=== PATIENT | female | born 1995 | race Caucasian/White ===

== ENCOUNTER 2022-01-23 03:34 | Emergency (ER) | payer SELFPAY ==
[2022-01-23] VITALS (31 sets, daily range): BP systolic 106–144; BP diastolic 73–98; PULSE 93–130; RESP 15–31; TEMP 36.1; O2SAT 93–100
--- NOTE | ~2022-01-23 | CT_ITS ---
EXAMINATION: CTA chest PE protocol DATE: 01/23/2022 05:23 INDICATION: Shortness of breath. Chest tightness. TECHNIQUE: Computed tomography angiography (CTA) of the chest was performed with 100 mL Omnipaque-350 intravenous contrast timed to evaluate the pulmonary arteries. Coronal maximum intensity projection 3D-reconstructions were created by the technologist. Automated exposure control and iterative reconst ruction technique were employed. The dose-length product was 218.17 mGy-cm. COMPARISON: None. FINDINGS: The lungs demonstrate mild groundglass opacities in dependent right upper lobe. There is mi ld atelectasis in right middle lobe. There are a few scattered nodules in the lungs measuring up to 5 mm in left lower lobe. There is mucous plugging in right lower lobe. No pleural effusion. The heart size is normal. No pericardial effusion. There is no pulmonary embolus. There is a chronic mild compr ession fracture of T7. IMPRESSION: 1. No pulmonary embolus. Sensitivity is mildly decreased by motion artifact. 2. Small lung nodules and mild right upper lobe groundglass opacities, likely mild infection. Reviewed, dictated and finalized at location A. IMPRESSION: 1. No pulmonary embolus. Sensitivity is mildly decreased by motion artifact. 2. Small lung nodules and mild right upper lobe groundglass opacities, likely m ild infection.
--- NOTE | ~2022-01-23 | XR_ITS ---
EXAMINATION: XR chest 2V DATE: 01/23/2022 04:15 INDICATION: Dyspnea. TECHNIQUE: Frontal and lateral views of the chest were obtained. COMPARISON: Chest CT 01/23/2022 FINDINGS: The chest demonstrates clear lungs without pneumonia, pleural effusion, or pneumothorax. Th e heart size is normal. There is a mild chronic compression fracture of T7. IMPRESSION: 1. No acute cardiopulmonary disease. Reviewed, dictated and finalized at location A.
--- NOTE | 2022-01-23 03:49 | ED.SOB ---
HPI - SOB/Dyspnea General Chief Complaint: Shortness of Breath/Dyspnea Stated Complaint: short of breath Time Seen by Provider: 01/23/22 03:39 History of Present Illness HPI Narrative: This is a 26-year-old female who denies past medical history, presenting to the emergency department complaining shortness of breath. She states for the past week she has had cough, chest tightness, shortness of breath and fevers without measured temperatures at home. 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 She states she is vaccinated for the coronavirus. Her symptoms are accompanied by decreased appetite and frequent loose stools. Related Data Allergies Allergy/AdvReac Type Severity Reaction Status Date / Time No Known Allergies Allergy Mild Verified 12/25/12 14:59 Review of Systems Review of Systems: CONSTITUTIONAL: Fevers denies fever, chills, or sweats. EYES: Denies visual changes, redness, or discharge. ENT: Denies rhinorrhea, congestion, sore throat, or otalgia. CARDIOVASCULAR: Denies chest pain, palpitations, or edema. RESPIRATORY: Cough and dyspnea cough or dyspnea. GASTROINTESTINAL: Diarrhea, Denies abdominal pain, nausea, vomiting, or diarrhea. GENITOURINARY: Denies dysuria or hematuria. SKIN: Denies rash or itching. MUSCULOSKELETAL: Denies back pain, joint pain, or myalgia. NEUROLOGIC: Denies headache, numbness, dizziness, or weakness. PSYCHIATRIC: Denies anxiety or depression. Exam Narrative: GENERAL: Well-developed, well-nourished, in mild distress due to dyspnea HEAD: Normocephalic, atraumatic. EYES: PERRLA and EOMI. ENT: Nares clear, no rhinorrhea or epistaxis. Mucous membranes moist. Oropharynx without tonsillar hypertrophy exudate or other lesions. NECK: Supple. No adenopathy or masses. No carotid bruits or JVD CHEST: Expiratory wheeze noted in the bilateral lower lung sanchez, right greater than left. Good aeration noted. No rales or rhonchi HEART: Tachycardic with regular rhythm. No murmur heard. Normal peripheral pulses. ABDOMEN: Soft, nontender, nondistended, normal active bowel sounds. EXTREMITIES: Normal range of motion. No edema. SKIN: Warm, dry, no rash. NEURO: No focal deficits. Alert and oriented x3. PSYCH: Normal mood and affect. Course Course Emergency Course: 03:54 - Resting heart rate in the 130s. Wells score 4.5. Will scan for PE. 04:19 - Reassessed patient. She states he feels improved after albuterol and labs. Expiratory wheeze has improved. 04:50 - CBC shows hemoglobin of 15.6 otherwise unremarkable. Chemistries unremarkable. test negative. Chest x-ray not concerning for pneumonia. CT PE and COVID/flu swabs pending. Reassessed patient she continues to improve with heart rate now decreased to the 100s. 06:59 - CT PE negative. COVID and flu swabs negative. Patient states she feels much better, tolerated p.o. and wishes to be discharged. I discussed return emergency precautions including signs and symptoms concerning for respiratory distress and ACS. The patient voiced understanding is comfortable with the plan. All questions answered to her satisfaction. Vital Signs Vital signs: Vital Signs Temperature 97 F L 01/23/22 03:38 Pulse Rate 111 H 01/23/22 03:38 Respiratory Rate 28 H 01/23/22 03:38 Blood Pressure 121/73 01/23/22 03:38 Pulse Oximetry 100 01/23/22 03:38 Oxygen Delivery Room Air 01/23/22 03:38 Temperature 97 F L 01/23/22 03:38 Pulse Rate 118 H 01/23/22 07:34 Respiratory Rate 30 H 01/23/22 07:25 Blood Pressure 137/84 01/23/22 07:25 Pulse Oximetry 95 01/23/22 07:25 Oxygen Delivery Room Air 01/23/22 03:58 MDM - SOB/Dyspnea MDM Narrative Medical decision making narrative: Plan: Labs, IV fluids, imaging, albuterol nebs, flu and COVID swab, test, reassess Differential Diagnosis Differential diagnosis: Likely community acquired pneumonia, pulmonary embolism and other (COVID, influenza, metabolic abnormality, preg
[2022-01-23] MEDS: ALBUTEROL SULFATE NEB 2.5 MG/3 ML INH 5 MG INHALATION ×2 (03:55→06:26)
[2022-01-23 04:31] LABS: Basophils Absolute Auto 0.1 K/mm3 (0.0-0.1); Basophils Percent Auto 1.4 % (0.2-1.2); Eosinophils Absolute Auto 0.6 K/mm3 (0-0.3); Hematocrit 46.8 % (37.0-47.0); Hemoglobin 15.6 g/dL (12.0-15.0); Immature Granulocyte Absolute 0.02 K/mm3 (0.00-0.031); Immature Granulocyte Percent A 0.3 % (0-0.5); Lymphocytes Absolute Auto 1.45 K/mm3 (0.9-3.2); Lymphocytes Percent Auto 22.6 % (18.3-44.2); Mean Corpuscular HGB Conc 33.3 g/dl (32-36); Mean Corpuscular Hemoglobin 27.2 pg (26-34); Mean Corpuscular Volume 81.5 fl (80-100); Mean Platelet Volume 11.4 fl (7.4-10.4); Monocytes Absolute Auto 0.7 K/mm3 (0.1-0.6); Monocytes Percent Auto 10.9 % (2.6-8.5); Neutrophils Absolute Auto 3.6 K/mm3 (1.3-6.7); Neutrophils Percent Auto 55.8 % (45.5-73.1); Platelet Count Result 271 k/mm3 (150-375); Red Blood Count 5.74 M/mm3 (4.2-5.4); Red Cell Distribution Width 12.6 % (11.5-14.5); White Blood Count 6.4 K/mm3 (4.5-10.0)
[2022-01-23] MEDS: SODIUM CHLORIDE 0.9% IV 1,000 ML 999 ML IV CONT (04:31)
[2022-01-23 04:47] LABS: Alanine Aminotransferase 25 U/L (6-35); Albumin Level 4.9 g/dL (3.5-5.1); Alkaline Phosphatase 70 U/L (38-126); Anion Gap 13 mmol/L (8-16); Aspartate Amino Transferase 30 U/L (14-36); Bilirubin,Total 0.7 mg/dL (0.2-1.3); Blood Urea Nitrogen 11 mg/dL (7-17); Calcium 9.7 mg/dL (8.4-10.2); Carbon Dioxide 23 mmol/L (22-30); Chloride 103 mmol/L (98-107); Estimated CRCL calculation 134 ml/min; Estimated Glomerular Filt Rate > 60; Glucose 103 mg/dL (65-110); Potassium 4.1 mmol/L (3.4-5.0); Sodium 139 mmol/L (137-145)
[2022-01-23 05:03] LABS: Influenza A QL RT-PCR Negative (Negative); Influenza B QL RT-PCR Negative (Negative); SARS-CoV-2 RNA PCR Negative
== END 2022-01-23 07:35 | disposition home or self-care (01) ==
PROVIDERS: Emergency Provider Preventive Medicine Aerospace Medicine
DX: J20.8 Acute bronchitis due to other specified organisms (principal); R00.0 Tachycardia, unspecified; R06.2 Wheezing; Z20.822 Contact with and (suspected) exposure to COVID-19
CPT/HCPCS: 36415; 71046; 71275; 80053; 81025; 85025; 87502; 94640; 96360; 96361; 99284; C9803; J7030; Q9967; U0003; U0005

== ENCOUNTER 2023-03-01 05:35 | Inpatient (IN) | payer MEDICAID, SELFPAY ==
[2023-03-01] VITALS (46 sets, daily range): BP systolic 132–156; BP diastolic 68–91; PULSE 90–141; RESP 13–36; TEMP 36.3–37.5; O2SAT 91–100; BMI 33.7
--- NOTE | ~2023-03-01 | CT_ITS ---
EXAMINATION: CTA chest DATE: 03/05/2023 08:27 INDICATION: Hypoxia. TECHNIQUE: Computed tomographic angiography (CTA) of the chest was performed with 100 mL Omnipaque-35 0 intravenous contrast. Automated exposure control and iterative reconstruction technique were employ ed. The dose-length product was 338.26 mGy-cm. Maximum intensity projection 3D-reconstructions of the aorta and other arteries were constructed by the technologist on a separate workstation. COMPARISON: Chest CT 01/23/2022 FINDINGS: The lungs demonstrate mild atelectasis. No pleural effusion. The heart size is normal. No p ericardial effusion. Thoracic aorta is normal. There is no pulmonary embolus. There is a chronic comp ression fracture of T7 vertebral body. IMPRESSION: 1. Mild bilateral atelectasis. 2. Normal thoracic aorta. 3. No pulmonary embolus. Reviewed, dictated and finalized at location E. ICAL UNIT OPERATOR
--- NOTE | ~2023-03-01 | XR_ITS ---
Portable chest x-ray Comparison: 01/23/2022 Clinical History: Dyspnea Findings: Lungs are clear, without focal consolidation or pleural effusion. Cardiomediastinal silho uette is stable. Bones and soft tissues are unremarkable. Impression: Normal chest. Reviewed, dictated and finalized at location . TITUTE CROSSING GUARD Impression: Normal chest.
--- NOTE | 2023-03-01 05:52 | ED.GENADULT ---
HPI - General Adult General Chief complaint: Shortness of Breath/Dyspnea <Paul Rubio MD - Last Filed: 03/01/23 06:52> Stated complaint: short of breath <Paul Rubio MD - Last Filed: 03/01/23 06:52> Time Seen by Provider: 03/01/23 05:50 <Paul Rubio MD - Last Filed: 03/01/23 06:52> History of Present Illness HPI narrative: This is a 27-year-old female with a history of asthma presenting with difficulty breathing. Patient says her symptoms started 4 hours prior to arrival. She has taken inhaler without relief. She denies fever chills chest pain or lower extremity edema. She is in the ER for asthma about 1 time per year. She has never been intubated but has used BiPAP the past. Patient smokes marijuana. <Paul Rubio MD - Last Filed: 03/01/23 06:52> This is a 27-year-old female with a history of asthma presenting with difficulty breathing. Patient says her symptoms started 4 hours prior to arrival. She has taken inhaler without relief. She denies fever chills chest pain or lower extremity edema. She is in the ER for asthma about 1 time per year. She has never been intubated but has used BiPAP the past. Patient smokes marijuana. <Javad Martinez MD - Last Filed: 03/06/23 20:36> Related Data Home medications: Home Medications Medication Instructions Recorded Confirmed diphenhydramine HCl 50 mg capsule 50 mg PO HS PRN sleep 03/01/23 03/01/23 <Paul Rubio MD - Last Filed: 03/01/23 06:52> Allergies/adverse reactions: Allergies Allergy/AdvReac Type Severity Reaction Status Date / Time No Known Allergies Allergy Mild Verified 03/01/23 05:42 <Paul Rubio MD - Last Filed: 03/01/23 06:52> [facility] Past Medical History Medical History: Medical History Asthma <Paul Rubio MD - Last Filed: 03/01/23 06:52> Family History Family History: Family History (Updated 03/01/23 @ 15:18 by Joann Ruiz, YAYA) Grandparent Acute myocardial infarction Asthma Chronic obstructive pulmonary disease Cerebrovascular accident Diabetes mellitus Hypertension Father Diabetes mellitus Hypertension <Paul Rubio MD - Last Filed: 03/01/23 06:52> Social History Social History: Social History Smoking status: Never smoker Second hand tobacco smoke exposure: No Alcohol intake: current Drinks per week: 2 Substance use: current Substance use type: marijuana Last use: 02/28/23 Lack of Transportation: No Lack of Food: Often True Current Housing: I Do Not Have Housing Concerned About Future Housing: No Difficulty Paying Gas/Electric Bills: YES Difficulty Paying for Meds: YES Currently Unemployed: YES Education: High School Diploma/GED Difficulty w/ Childcare or Family Care: No Spiritual care concerns: No <Paul Rubio MD - Last Filed: 03/01/23 06:52> Exam Narrative: APPEARANCE: No apparent distress. Head: atraumatic. EYES: EOMI, NOSE: Atraumatic NECK: Trachea midline RESPIRATORY: 2-3 word dyspnea, wheezing in all sanchez CARDIOVASCULAR: RRR, ABDOMINAL: Non-distended MUSCULOSKELETAl: No obvious deformities NEURO: Alert. Moving 4/4 extremities SKIN:: Warm, dry. Normal color PSYCHIATRIC: Normal affect <Paul Rubio MD - Last Filed: 03/01/23 06:52> Course Course Emergency Course: BRAD: 7:20 AM Reevaluated patient, feeling quite a bit better. Continues to wheeze on exam with some mild increased work of breathing, additional nebulizer treatment ordered. 9:35 AM Patient seen ambulating around the department without difficulty, in no respiratory distress. Continues to be tachycardic, IVF infusing. 10:35 AM Patient continues to be tachycardic in the 130s despite multiple fluid boluses and improved respirations. Will do lab work and discuss hospitalization. 11:58
[2023-03-01] MEDS: IPRATROPIUM BR 0.02% INH SOLN 0.5 MG/2.5 ML VIAL 1 MG INHALATION (06:00)
[2023-03-01] MEDS: ALBUTEROL SULFATE NEB 2.5 MG/3 ML INH 10 MG INHALATION (06:00)
[2023-03-01] MEDS: MAGNESIUM SULF 2 GM/WATER 50ML 2 GM/50 ML BAG IVPB (06:01)
[2023-03-01] MEDS: SODIUM CHLORIDE 0.9% IV 1,000 ML 999 ML IV CONT ×3 (06:01→09:49)
[2023-03-01] MEDS: ALBUTEROL SULFATE NEB 2.5 MG/3 ML INH INHALATION ×2 (07:36→14:09)
[2023-03-01] MEDS: IPRATROPIUM BR 0.02% INH SOLN 0.5 MG/2.5 ML VIAL INHALATION ×3 (07:36→20:38)
--- NOTE | 2023-03-01 10:35 | ECG_ITS ---
Measurements Intervals Burns Rate: 131 P: 63 MS: 132 QRS: 27 QRSD: 86 T: 13 QT: 353 QTc: 522 Interpretive Statements SINUS TACHYCARDIA INCOMPLETE RIGHT BUNDLE BRANCH BLOCK DELAYED PRECORDIAL R/S TRANSITION NONSPECIFIC ST & T-WAVE ABNORMALITY- ANTEROLAT/INF LEADS BASELINE ARTIFACT- I, III, AVR, AVL, AVF ABNORMAL ECG NO PREVIOUS ECG AVAILABLE FOR COMPARISON Electronically Signed On 03-01-2023 10:47:02 REGIONAL PROJECT MANAGER by Luis Alberto London D.O.
[2023-03-01 11:13] LABS: Basophils Percent Auto 0.2 % (0.2-1.2); Eosinophils Percent Auto 0.1 % (0-4.4); Hematocrit 42.1 % (37.0-47.0); Hemoglobin 13.3 g/dL (12.0-15.0); Immature Granulocyte Absolute 0.04 K/mm3 (0.00-0.031); Immature Granulocyte Percent A 0.4 % (0-0.5); Lymphocytes Absolute Auto 0.25 K/mm3 (0.9-3.2); Lymphocytes Percent Auto 2.3 % (18.3-44.2); Mean Corpuscular HGB Conc 31.6 g/dl (32-36); Mean Corpuscular Hemoglobin 26.3 pg (26-34); Mean Corpuscular Volume 83.2 fl (80-100); Mean Platelet Volume 10.9 fl (7.4-10.4); Monocytes Absolute Auto 0.1 K/mm3 (0.1-0.6); Monocytes Percent Auto 1.1 % (2.6-8.5); Neutrophils Absolute Auto 10.5 K/mm3 (1.3-6.7); Neutrophils Percent Auto 95.9 % (45.5-73.1); Platelet Count Result 269 k/mm3 (150-375); Red Blood Count 5.06 M/mm3 (4.2-5.4); Red Cell Distribution Width 13.2 % (11.5-14.5); White Blood Count 10.9 K/mm3 (4.5-10.0)
[2023-03-01 11:35] LABS: Alanine Aminotransferase 34 U/L (6-35); Albumin Level 4.5 g/dL (3.5-5.1); Alkaline Phosphatase 63 U/L (38-126); Anion Gap 17 mmol/L (8-16); Aspartate Amino Transferase 27 U/L (14-36); Bilirubin,Total 0.5 mg/dL (0.2-1.3); Blood Urea Nitrogen 6 mg/dL (7-17); Calcium 8.3 mg/dL (8.4-10.2); Carbon Dioxide 16 mmol/L (22-30); Chloride 109 mmol/L (98-107); Estimated CRCL calculation 137 ml/min; Estimated Glomerular Filt Rate > 60; Glucose 161 mg/dL (65-110); Potassium 3.5 mmol/L (3.4-5.0); Sodium 142 mmol/L (137-145)
[2023-03-01 11:36] LABS: NT Pro B Type Natriuretic Pept 81 pg/mL (19.9-100); Troponin I < 0.012 ng/mL (0.000-0.034)
[2023-03-01 11:39] LABS: D Dimer < 0.27 ug/mL (<0.48)
[2023-03-01 11:51] LABS: Influenza A QL RT-PCR Negative (Negative); Influenza B QL RT-PCR Negative (Negative); RSV RNA, RT-PCR Negative (Negative); SARS-CoV-2 RNA PCR Negative (Negative)
[2023-03-01] MEDS: METOPROLOL TARTRATE INJ 5 MG/5 ML VIAL 2.5 MG IV PUSH (12:41)
[2023-03-01 13:29] LABS: Lactic Acid Reflex 3.5 mmol/L (0.7-2.0)
--- NOTE | 2023-03-01 15:04 | PM.IMHP ---
H&P: HPI History of Present Illness Date/Time: 03/01/23 15:04 Chief Complaint: shortness of breath Narrative: 27F accompanied by a male probably significant other w/ PMH reactive airway disease and marijuana use daily w/o a PCP or inhalers presents with SOB. she has an asthma attack about once a year, and last time she had tachycardia. she has 4 cats at home she is allergic to, mold at the house as well. in the ER she was successfully treated with steroid magnesium and nebs. she breathes normal now but tachycardia persists which was improved with IV metoprolol. she has lactic acidosis as well and a slightly elevated white count. she denies any complaints currently except that she is dehydrated as she has not been eating. Review of Systems Review of Systems: All systems reviewed & are unremarkable except as noted in HPI and below PMFSH Past Medical History Medical History Asthma Meds Home Medications and Allergies Home Medications Medication Instructions Recorded Confirmed Type acetaminophen 500 mg capsule 1,000 mg PO Q6H PRN fever or pain 01/23/22 Rx #60 caps albuterol sulfate 90 mcg/actuation 2 inh inhalation Q4-6H PRN 01/23/22 Rx breath activated powder inhaler shortness of breath or wheezing #1 ea albuterol sulfate 90 mcg/actuation 2 puff inhalation QID #8.5 grams 03/01/23 Rx aerosol inhaler prednisone 20 mg tablet 40 mg PO DAILY 5 days #10 tabs 03/01/23 Rx Allergies Allergy/AdvReac Type Severity Reaction Status Date / Time No Known Allergies Allergy Mild Verified 03/01/23 05:42 Vital Signs Vital Signs - 24 hr 03/01/23 05:37 03/01/23 05:44 03/01/23 05:44 Temperature 99.5 F Pulse Rate 102 H 103 H Respiratory Rate 22 H Blood Pressure 156/88 H Pulse Oximetry 97 97 Oxygen Delivery Room Air Room Air Fraction of Inspired Oxygen 03/01/23 05:44 03/01/23 05:46 03/01/23 06:02 Temperature Pulse Rate 97 90 Respiratory Rate 17 19 Blood Pressure 134/82 Pulse Oximetry 96 97 Oxygen Delivery Room Air Fraction of Inspired Oxygen 03/01/23 06:56 03/01/23 07:04 03/01/23 07:36 Temperature Pulse Rate 122 H 128 H 132 H Respiratory Rate 17 18 18 Blood Pressure 138/74 Pulse Oximetry 100 Oxygen Delivery Fraction of Inspired Oxygen 03/01/23 07:50 03/01/23 07:15 03/01/23 08:43 Temperature Pulse Rate 125 H 136 H Respiratory Rate 18 18 Blood Pressure 138/75 Pulse Oximetry 100 95 Oxygen Delivery Room Air Fraction of Inspired Oxygen 03/01/23 07:38 03/01/23 07:45 03/01/23 08:00 Temperature Pulse Rate 101 H 132 H Respiratory Rate 13 30 H Blood Pressure Pulse Oximetry 92 100 Oxygen Delivery Fraction of Inspired Oxygen 03/01/23 08:07 03/01/23 08:15 03/01/23 08:30 Temperature Pulse Rate 136 H 141 H 138 H Respiratory Rate 23 H 23 H 27 H Blood Pressure 149/81 H Pulse Oximetry Oxygen Delivery Fraction of Inspired Oxygen 03/01/23 08:32 03/01/23 08:45 03/01/23 09:00 Temperature Pulse Rate 133 H 136 H 136 H Respiratory Rate 22 H 28 H 32 H Blood Pressure 150/91 H Pulse Oximetry 95 93 Oxygen Delivery Fraction of Inspired Oxygen 03/01/23 09:23 03/01/23 09:30 03/01/23 09:32 Temperature Pulse Rate 134 H 139 H 136 H Respiratory Rate 20 26 H 36 H Blood Pressure 144/74 H Pulse Oximetry 97 96 95 Oxygen Delivery Fraction of Inspired Oxygen 03/01/23 09:45 03/01/23 10:00 03/01/23 10:02 Temperature Pulse Rate 135 H 128 H 129 H Respiratory Rate 18 21 H 19 Blood Pressure 146/72 H Pulse Oximetry 96 96 95 Oxygen Delivery Fraction of Inspired Oxygen 03/01/23 10:15 03/01/23 10:30 03/01/23 10:32 Temperature Pulse Rate 131 H 129 H 133 H Respiratory Rate 22 H 28 H 22 H Blood Pressure 148/79 H Pulse Oximetry 94 96 98 Oxygen Delivery Fraction of Inspired Oxygen 03/01/23 10:45 03/01
--- NOTE | 2023-03-01 15:10 | ADMGEN ---
This patient, Wilma Thakkar, was admitted to IMU Room 232-01. Patient/family oriented to hospital policies and general routines including ID bracelet, bed and alarms, visiting hours, pain management, procedures, bathroom and other care routines, personal items, smoking policy, room service/diet, and visiting hours. Information on how to activate the Rapid Response Team has been discussed. Patient/Family are encouraged to report perceived risks to care and to ask questions if they do not understand what they are told or what they should do.
[2023-03-01 16:17] LABS: Reflex Lactic Acid Yes or No Add Lactic
[2023-03-01] MEDS: SODIUM CHLORIDE 0.9% IV 1,000 ML 100 ML IV CONT (16:53)
[2023-03-01] MEDS: methylPREDNISolone SOD SUCC 125 MG VIAL 60 MG IV PUSH (18:59)
[2023-03-01] MEDS: LEVALBUTEROL NEB 1.25 MG/3 ML INHALATION (20:38)
[2023-03-01 22:12] LABS: Lactic Acid Reflex 1.7 mmol/L (0.7-2.0)
[2023-03-01 22:14] LABS: Anion Gap 16 mmol/L (8-16); Blood Urea Nitrogen 7 mg/dL (7-17); Calcium 9.3 mg/dL (8.4-10.2); Carbon Dioxide 17 mmol/L (22-30); Chloride 105 mmol/L (98-107); Estimated CRCL calculation 175 ml/min; Estimated Glomerular Filt Rate > 60; Glucose 133 mg/dL (65-110); Potassium 3.5 mmol/L (3.4-5.0); Sodium 138 mmol/L (137-145)
[2023-03-02] VITALS (27 sets, daily range): BP systolic 123–147; BP diastolic 58–102; PULSE 90–142; RESP 16–24; TEMP 36.3–37.1; O2SAT 88–100
--- NOTE | 2023-03-02 | ECHO_ITS ---
Patient Info Name: Wilma Thakkar Age: 27 years : 1995 Gender: Female Ht: 62 in Wt: 194 lbs BSA: 2.00 m2 HR: 113 bpm BP: 136 / 102 mmHg Heart Rhythm: Sinus Rhythm Technical Quality: Fair Exam Date: 03/02/2023 11:27 AM Exam Location: Echo Lab Exam Room: 232 Patient Status: Inpatient Admit Date: 03/02/2023 Staff Ordering Physician: Melodie Benz MD Sales Representative Jewelry: Evelyn Clemente RDCS Attending Provider: Melodie Benz MD Exam Type: CA echo doppler color flow Study Info Indications - tachycardia sob Complete two-dimensional, color flow and Doppler transthoracic echocardiogram is performed. Summary 1. Complete two-dimensional, color flow and Doppler transthoracic echocardiogram is performed. 2. Hyperdynamic left ventricular systolic contractility suggesting a state of increased eye no trophic stimulation. 3. Otherwise unremarkable echocardiogram. Left Ventricle Left ventricular chamber dimension is normal. Left ventricular systolic function is hyperdynamic, estimated at >70%. The left ventricular diastolic function is normal. Right Ventricle Right ventricular chamber dimension is normal. Left Atria Left atrial chamber dimension is normal. Right Atria Right atrial chamber dimension is normal. Aortic Valve The aortic valve is normal. Pulmonic Valve The pulmonic valve is normal. Mitral Valve The mitral valve has normal leaflets. Tricuspid Valve The tricuspid valve leaflets are normal. Pericardium/Pleural The pericardium appears normal. Aorta The aortic root size at the sinus of Valsalva is normal. Left Ventricular Outflow Tract Name Value Normal LVOT 2D LVOT Diameter 2.0 cm LVOT Doppler LVOT Peak Gradient 6 mmHg LVOT Mean Gradient 4 mmHg LVOT VTI 21 cm LVOT VTI/AV VTI Ratio 0.9 LVOT Stroke Volume 65 ml Pulmonic Valve Name Value Normal PV Doppler PV Peak Gradient 5 mmHg Mitral Valve Name Value Normal MV Doppler MV Decel [place] 641 cm/s2 MV PHT 46 ms MV Area (PHT) 4.8 cm2 4.0-5.0 MV Diastolic Function MV E Peak Velocity 101 cm/s MV A Peak Velocity 95 cm/s MV E/A 1.1 MV Decel Time 158 ms Tricuspid Valve Name Value Nor
[2023-03-02] MEDS: methylPREDNISolone SOD SUCC 125 MG VIAL 60 MG IV PUSH ×4 (00:11→17:36)
[2023-03-02] MEDS: IPRATROPIUM BR 0.02% INH SOLN 0.5 MG/2.5 ML VIAL INHALATION ×4 (02:43→20:57)
[2023-03-02] MEDS: LEVALBUTEROL NEB 1.25 MG/3 ML INHALATION ×4 (02:43→20:57)
[2023-03-02] MEDS: SODIUM CHLORIDE 0.9% IV 1,000 ML 100 ML IV CONT (03:00)
[2023-03-02 05:39] LABS: Basophils Percent Auto 0.1 % (0.2-1.2); Hematocrit 41.2 % (37.0-47.0); Immature Granulocyte Absolute 0.06 K/mm3 (0.00-0.031); Immature Granulocyte Percent A 0.4 % (0-0.5); Lymphocytes Absolute Auto 0.71 K/mm3 (0.9-3.2); Mean Corpuscular HGB Conc 31.6 g/dl (32-36); Mean Corpuscular Hemoglobin 26.6 pg (26-34); Mean Corpuscular Volume 84.3 fl (80-100); Mean Platelet Volume 11.1 fl (7.4-10.4); Monocytes Absolute Auto 0.3 K/mm3 (0.1-0.6); Monocytes Percent Auto 1.8 % (2.6-8.5); Neutrophils Absolute Auto 13.3 K/mm3 (1.3-6.7); Neutrophils Percent Auto 92.7 % (45.5-73.1); Platelet Count Result 253 k/mm3 (150-375); Red Blood Count 4.89 M/mm3 (4.2-5.4); Red Cell Distribution Width 13.3 % (11.5-14.5); White Blood Count 14.3 K/mm3 (4.5-10.0)
[2023-03-02 05:47] LABS: Potassium 3.9 mmol/L (3.4-5.0)
[2023-03-02 05:49] LABS: Anion Gap 12 mmol/L (8-16); Blood Urea Nitrogen 7 mg/dL (7-17); Calcium 8.8 mg/dL (8.4-10.2); Carbon Dioxide 19 mmol/L (22-30); Chloride 107 mmol/L (98-107); Estimated CRCL calculation 175 ml/min; Estimated Glomerular Filt Rate > 60; Glucose 168 mg/dL (65-110); Magnesium 2.1 mg/dL (1.6-2.3); Sodium 138 mmol/L (137-145)
[2023-03-02 06:21] LABS: Procalcitonin 0.1 ng/mL
--- NOTE | 2023-03-02 08:24 | PCWOUND ---
WOCN NOTE Received referral for wound care. spoke to day RN no wound present.
--- NOTE | 2023-03-02 09:56 | PM.IMPN ---
Progress Note: A&P Assessment and Plan (1) Tachycardia: Code(s): R00.0 - Tachycardia, unspecified Status: Acute (2) Asthma: Qualifiers: Asthma complication type: with acute exacerbation Asthma persistence: unspecified Asthma severity: unspecified severity Qualified Code(s): J45.901 - Unspecified asthma with (acute) exacerbation Code(s): J45.909 - Unspecified asthma, uncomplicated Status: Acute (3) Dehydration: Code(s): E86.0 - Dehydration Status: Acute Plan 27F w/ PMH reactive airway disease presents shortness of breath and asthma exacerbation 1) asthma exacerbation/acute hypoxic respiratory failure - o2 taken off, ARF resolved - 03/02 still tight, PEF 300 --> 350 - cont solumedrol and duonebs - leukocytosis, trend. trend procal. likely 2/2 steroids, no signs of systemic toxicity 2) tachycardia - per history, this is chronic, but never evaluated. she has had adequate fluid resuscitation without improvement. tachycardia certainly could be augmented by albuterol, however it is unusually high in 140's. switched to levalbuterol. cont tele and consult cardiology. metoprolol IV 5mg x1 did help the HR come down slightly. - will also check ABG and blood cultures. d dimer negative. trop negative. - EKG inferolateral T wave abnormalities. obtaining 2d echo 3) marijuana abuse - counseled FEN: saline lock IV, regular diet GI prophylaxis: not indicated DVT prophylaxis: lovenox Lines: pIV Code Status: Full Code Dispo: stable. More than 35 minutes spent on chart review, patient interaction and assessment and plan. Subjective Date/time seen: 03/02/23 09:56 Interval history: NAOE. pt denies shortness of breath, she does however complain of palpitation. she has not had this worked up, but the boyfriend present says its been there for a long time. Review of Systems Review of Systems: All systems reviewed & are unremarkable except as noted in HPI and below Exam Const: General: comfortable and no acute distress Eyes: Pupils: Equal, round and reactive pupils present Neck: Neck: supple Resp: Other: decreased air intake, expiratory wheeze Cardio: Rate: tachycardic Rhythm: regular rhythm Heart sounds: no gallops, no murmurs and no rubs GI: GI Palp: Yes Soft to palpation and No Tenderness to palpation present (GI) Extrem: General: no edema Objective Data Vital Signs Vital Signs: Vital Signs - 24 hr 03/01/23 10:00 03/01/23 10:02 03/01/23 10:15 Temperature Pulse Rate 128 H 129 H 131 H Respiratory Rate 21 H 19 22 H Blood Pressure 146/72 H Pulse Oximetry 96 95 94 Oxygen Delivery Oxygen Flow Rate Fraction of Inspired Oxygen 03/01/23 10:30 03/01/23 10:32 03/01/23 10:45 Temperature Pulse Rate 129 H 133 H 131 H Respiratory Rate 28 H 22 H 23 H Blood Pressure 148/79 H Pulse Oximetry 96 98 99 Oxygen Delivery Oxygen Flow Rate Fraction of Inspired Oxygen 03/01/23 11:11 03/01/23 11:22 03/01/23 11:37 Temperature Pulse Rate 133 H 126 H 129 H Respiratory Rate 29 H 25 H 22 H Blood Pressure Pulse Oximetry 93 95 91 Oxygen Delivery Oxygen Flow Rate Fraction of Inspired Oxygen 03/01/23 11:45 03/01/23 12:41 03/01/23 12:53 Temperature Pulse Rate 126 H 124 H Respiratory Rate 29 H Blood Pressure Pulse Oximetry 93 92 Oxygen Delivery Room Air Oxygen Flow Rate Fraction of Inspired Oxygen 03/01/23 14:09 03/01/23 14:09 03/01/23 14:19 Temperature Pulse Rate 98 105 H Respiratory Rate 18 20 Blood Pressure Pulse Oximetry 93 100 Oxygen Delivery Room Air Oxygen Flow Rate Fraction of Inspired Oxygen 21 03/01/23 14:30 03/01/23 16:00 03/01/23 16:00 Temperature 97.4 F L 98.1 F Pulse Rate 127 H 118 H Respiratory Rate 16 18 Blood Pressure 132/68 140/77 Pulse Oximetry 94 93 Oxygen Delivery Room Air Oxygen Flow Rate Fraction of Inspired Oxygen 03/01
[2023-03-02] MEDS: METOPROLOL TARTRATE INJ 5 MG/5 ML VIAL IV PUSH ×2 (10:58→16:28)
[2023-03-02 14:49] LABS: Alveolar/Arterial O2 Gradient 56.4 mmHg; Base Excess ABG 0.4 mEq/l (+/-2.0); Fractional Inspired Oxygen 21 %; HCO3 ABG 23.3 mEq/l (22.0-26.0); Oxygen Content ABG 18.2 %vol (16.0-22.0); Oxygen Saturation ABG 90.3 % (95.0-100.0); Oxyhemoglobin 88.9 % THb (90.0-100.0); PCO2 ABG 32.8 mmHg (35.0-45.0); PO2 ABG 54.1 mmHg (80.0-100.0); PO2 FiO2 Ratio Arterial Blood 2.58 %; Total Hemoglobin 14.6 g/dL (12.0-18.0); pH ABG 7.469 (7.350-7.450)
[2023-03-02 14:50] LABS: Device ROOM AIR; Site Drawn RIGHT BRACHIAL
[2023-03-02 16:50] LABS: Glucose Point of Care 134 mg/dl (65-105)
--- NOTE | 2023-03-02 18:17 | PM.CNCAR ---
Assessment and Plan Assessment and plan (1) Tachycardia: Code(s): R00.0 - Tachycardia, unspecified Status: Acute Plan This is a otherwise healthy 27-year-old woman who has a diagnosis of asthma presenting with an asthmatic attack/exacerbation. In this setting following treatment emergency room she was found to be rather tachycardic heart rates as rapid as 140. Her cardiac rhythm however is not abnormal she has sinus rhythm/sinus tachycardia and this is strictly speaking not an arrhythmia. She has no structural heart disease on echo no evidence of anemia or fever. I would conclude that her tachycardia is a physiologic response to the asthmatic attack and the medications used to treat it. At this point I would discontinue the orders for p.r.n. metoprolol. It is certainly possible this young patient could have inappropriate sinus tachycardia but I would not give her that diagnosis at the time she is hospitalized with an asthmatic attack. We will follow her with you during the hospital stay at this point there are no specific cardiac recommendations to make. Jose Ibarra MD [facility] History of Present Illness History of Present Illness Consult date/time: 03/02/23 18:17 Reason For Visit: asthma exacerbation,tachycardia Narrative: This is a 27-year-old woman I am seeing at the request of the hospitalist because of sinus tachycardia. She has no cardiovascular history or problems and does not have any apparent cardiac symptoms. She does have a history of asthma which was diagnosed as such in her early 20s. She says that earlier in her life she thought she was having problems with occasional episodes of seasonal allergies but in retrospect she believes it was asthmatic problems. She states she has a poor living situation and is not able to have any regular medical care she was having significant difficulty breathing for a couple of days with wheezing her boyfriend finally took her to the emergency room and where she was evaluated and admitted. A she was apparently treated with steroids and nebulizers and her breathing improved fairly promptly. She was found to be very tachycardic on EKG and was placed on telemetry while she is in the hospital she has sinus rhythm/sinus tachycardia with heart rate varying between 90 and 140. Once again she has no cardiac complaints. She is not anemic or febrile. She had an echocardiogram done this afternoon which demonstrates a structurally normal heart with no abnormalities. Her 12 lead electrocardiogram other than sinus tachycardia is a normal tracing. Review of Systems Constitutional: Constitutional: Reports no additional constitutional complaints Eyes: Eyes: Reports no additional eye complaints ENT: Reports system reviewed and no additional complaints, except as documented Cardiovascular: Cardiovascular: Reports no additional cardiovascular complaints Respiratory: Respiratory: Reports dyspnea and Reports wheezing Gastrointestinal: Gastrointestinal: Reports no additional gastrointestinal complaints Musculoskeletal: Musculoskeletal: Reports no additional musculoskeletal complaints Integumentary/Breasts: Skin/Breast: Reports system reviewed and no additional complaints, except as docu Neurologic: Reports system reviewed and no additional complaints, except as documented Endocrine: Endocrine: Reports no additional endocrine complaints Hematologic/Lymphatic: Hematologic/Lymphatic: Reports no additional hematologic/lymphatic complaints Allergic/Immunologic: Allergic/Immunologic: Reports no additional allergic/immunologic complaints PMFSH Past Medical History Medical History Asthma Family History Family History (Updated 03/01/23 @ 15:18 by Joann Ruiz RN) Grandparent Acute myocardial infarction Asthma Chronic obstructive pulmonary disease Cerebrovascular accident Diabetes mellitus Hypertension Father Diabete
[2023-03-02 20:26] LABS: Glucose Point of Care 126 mg/dl (65-105)
[2023-03-03] VITALS (27 sets, daily range): BP systolic 120–144; BP diastolic 64–81; PULSE 85–123; RESP 18–20; TEMP 36.3–37.1; O2SAT 88–94
[2023-03-03] MEDS: methylPREDNISolone SOD SUCC 125 MG VIAL 60 MG IV PUSH ×4 (01:01→18:28)
[2023-03-03] MEDS: LEVALBUTEROL NEB 1.25 MG/3 ML INHALATION ×4 (02:29→20:40)
[2023-03-03] MEDS: IPRATROPIUM BR 0.02% INH SOLN 0.5 MG/2.5 ML VIAL INHALATION ×4 (02:30→20:40)
[2023-03-03 05:16] LABS: Basophils Percent Auto 0.2 % (0.2-1.2); Hematocrit 43.3 % (37.0-47.0); Immature Granulocyte Absolute 0.14 K/mm3 (0.00-0.031); Immature Granulocyte Percent A 0.7 % (0-0.5); Lymphocytes Absolute Auto 0.83 K/mm3 (0.9-3.2); Lymphocytes Percent Auto 4.2 % (18.3-44.2); Mean Corpuscular HGB Conc 32.3 g/dl (32-36); Mean Corpuscular Hemoglobin 26.7 pg (26-34); Mean Corpuscular Volume 82.5 fl (80-100); Monocytes Absolute Auto 0.8 K/mm3 (0.1-0.6); Monocytes Percent Auto 4.1 % (2.6-8.5); Neutrophils Absolute Auto 18.1 K/mm3 (1.3-6.7); Neutrophils Percent Auto 90.8 % (45.5-73.1); Platelet Count Result 308 k/mm3 (150-375); Red Blood Count 5.25 M/mm3 (4.2-5.4); Red Cell Distribution Width 13.4 % (11.5-14.5); White Blood Count 19.9 K/mm3 (4.5-10.0)
[2023-03-03 05:25] LABS: Anion Gap 11 mmol/L (8-16); Blood Urea Nitrogen 14 mg/dL (7-17); Calcium 9.4 mg/dL (8.4-10.2); Carbon Dioxide 22 mmol/L (22-30); Chloride 106 mmol/L (98-107); Estimated CRCL calculation 142 ml/min; Estimated Glomerular Filt Rate > 60; Glucose 137 mg/dL (65-110); Magnesium 2.3 mg/dL (1.6-2.3); Potassium 4.2 mmol/L (3.4-5.0); Sodium 139 mmol/L (137-145)
[2023-03-03 05:43] LABS: Procalcitonin 0.1 ng/mL
[2023-03-03] MEDS: ENOXAPARIN 40 MG/0.4 ML SYRINGE SUB-Q (08:20)
--- NOTE | 2023-03-03 10:14 | PM.IMPN ---
Progress Note: A&P Assessment and Plan (1) Dehydration: Code(s): E86.0 - Dehydration Status: Acute (2) Asthma: Qualifiers: Asthma complication type: with acute exacerbation Asthma persistence: unspecified Asthma severity: unspecified severity Qualified Code(s): J45.901 - Unspecified asthma with (acute) exacerbation Code(s): J45.909 - Unspecified asthma, uncomplicated Status: Acute (3) Tachycardia: Code(s): R00.0 - Tachycardia, unspecified Status: Acute Plan 27F w/ PMH reactive airway disease presents shortness of breath and asthma exacerbation 1) asthma exacerbation/acute hypoxic respiratory failure - o2 taken off, ARF resolved - 03/02 still tight, PEF 300 --> 350 - 03/03 PEF 270 - cont solumedrol and duonebs. on 03/03 adding azithromycin given her slow response, will help with inflammation -?leukocytosis,?uptrenidng. cont to trend. procal wnl although. likely 2/2 steroids, no signs of systemic toxicity. blood cultures taken 2) sinus tachycardia - per history, this is chronic, but never evaluated. she has had adequate fluid resuscitation without improvement. tachycardia certainly could be augmented by albuterol, however it is unusually high in 140's. switched to levalbuterol. cont tele and consult cardiology. metoprolol IV 5mg x1 did help the HR come down slightly. - will also check ABG and blood cultures. d dimer negative. trop negative. - EKG inferolateral T wave abnormalities. obtaining 2d echo - 03/03 2D echo w/o structural abnormalities. cardiology recommends d/c metoprolol and treat asthma. 3) marijuana abuse - counseled FEN: saline lock IV, regular diet GI prophylaxis: not indicated DVT prophylaxis: lovenox Lines: pIV Code Status: Full Code Dispo: stable. More than 25 minutes spent on chart review, patient interaction and assessment and plan. Subjective Date/time seen: 03/03/23 10:14 Interval history: NAOE. pt denies feeling palpitations today, but does have intermittent shortness of breath and dry cough. she denies fever Review of Systems Review of Systems: All systems reviewed & are unremarkable except as noted in HPI and below Exam Const: General: comfortable and no acute distress Eyes: Pupils: Equal, round and reactive pupils present Resp: Effort & Inspection: normal respiratory effort Auscultation: no crackles, wheezes and diminished lung sounds Other: peak expiratory flow 270 Cardio: Rate: tachycardic Rhythm: regular rhythm Heart sounds: no gallops, no murmurs and no rubs GI: GI Palp: Yes Soft to palpation and No Tenderness to palpation present (GI) Extrem: General: no edema Objective Data Vital Signs Vital Signs: Vital Signs - 24 hr 03/02/23 10:58 03/02/23 12:00 03/02/23 12:00 Temperature 97.4 F L Pulse Rate 133 H 120 H 117 H Respiratory Rate 24 H Blood Pressure 137/75 Pulse Oximetry 98 Oxygen Delivery Oxygen Flow Rate Fraction of Inspired Oxygen 03/02/23 14:00 03/02/23 12:00 03/02/23 14:44 Temperature Pulse Rate 113 H 101 H Respiratory Rate 24 H Blood Pressure Pulse Oximetry 91 Oxygen Delivery Nasal Cannula Oxygen Flow Rate 1 Fraction of Inspired Oxygen 03/02/23 14:45 03/02/23 14:57 03/02/23 16:00 Temperature 98.7 F Pulse Rate 109 H 90 Respiratory Rate 20 20 Blood Pressure 128/75 Pulse Oximetry 92 98 Oxygen Delivery Room Air Oxygen Flow Rate Fraction of Inspired Oxygen 03/02/23 16:28 03/02/23 16:00 03/02/23 16:00 Temperature Pulse Rate 133 H 131 H Respiratory Rate Blood Pressure Pulse Oximetry 93 Oxygen Delivery Nasal Cannula Oxygen Flow Rate 1 Fraction of Inspired Oxygen 03/02/23 18:00 03/02/23 20:25 03/02/23 20:59 Temperature 97.6 F Pulse Rate 118 H 111 H 102 H Respiratory Rate 18 20 Blood Pressure 147/83 H Pulse Oximetry 94 Oxygen Delivery Oxygen Flow Rate Fraction of Inspired Oxygen 1
[2023-03-03] MEDS: AZITHROMYCIN 500 MG/NS 250 ML 500 MG/250 ML BAG 250 MG IVPB (11:04)
[2023-03-04] VITALS (27 sets, daily range): BP systolic 131–138; BP diastolic 74–83; PULSE 76–122; RESP 14–107; TEMP 36.4–36.8; O2SAT 90–98
[2023-03-04] MEDS: methylPREDNISolone SOD SUCC 125 MG VIAL 60 MG IV PUSH ×5 (00:04→23:23)
[2023-03-04] MEDS: LEVALBUTEROL NEB 1.25 MG/3 ML INHALATION ×4 (02:44→20:43)
[2023-03-04] MEDS: IPRATROPIUM BR 0.02% INH SOLN 0.5 MG/2.5 ML VIAL INHALATION ×4 (02:46→20:43)
[2023-03-04 05:47] LABS: Basophils Percent Auto 0.1 % (0.2-1.2); Hematocrit 43.4 % (37.0-47.0); Hemoglobin 13.8 g/dL (12.0-15.0); Immature Granulocyte Absolute 0.19 K/mm3 (0.00-0.031); Immature Granulocyte Percent A 1.3 % (0-0.5); Lymphocytes Absolute Auto 0.95 K/mm3 (0.9-3.2); Lymphocytes Percent Auto 6.3 % (18.3-44.2); Mean Corpuscular HGB Conc 31.8 g/dl (32-36); Mean Corpuscular Hemoglobin 26.8 pg (26-34); Mean Corpuscular Volume 84.4 fl (80-100); Mean Platelet Volume 11.1 fl (7.4-10.4); Monocytes Absolute Auto 0.7 K/mm3 (0.1-0.6); Monocytes Percent Auto 4.4 % (2.6-8.5); Neutrophils Absolute Auto 13.3 K/mm3 (1.3-6.7); Neutrophils Percent Auto 87.9 % (45.5-73.1); Platelet Count Result 295 k/mm3 (150-375); Red Blood Count 5.14 M/mm3 (4.2-5.4); Red Cell Distribution Width 13.1 % (11.5-14.5); White Blood Count 15.1 K/mm3 (4.5-10.0)
[2023-03-04 06:02] LABS: Anion Gap 10 mmol/L (8-16); Blood Urea Nitrogen 14 mg/dL (7-17); Calcium 8.8 mg/dL (8.4-10.2); Carbon Dioxide 25 mmol/L (22-30); Chloride 102 mmol/L (98-107); Estimated CRCL calculation 121 ml/min; Estimated Glomerular Filt Rate > 60; Glucose 133 mg/dL (65-110); Potassium 4.1 mmol/L (3.4-5.0); Sodium 137 mmol/L (137-145)
[2023-03-04] MEDS: ENOXAPARIN 40 MG/0.4 ML SYRINGE SUB-Q (09:13)
[2023-03-04] MEDS: AZITHROMYCIN 500 MG/NS 250 ML 500 MG/250 ML BAG 250 MG IVPB (09:13)
--- NOTE | 2023-03-04 09:24 | PM.IMPN ---
Progress Note: A&P Assessment and Plan (1) Acute hypoxemic respiratory failure: Code(s): J96.01 - Acute respiratory failure with hypoxia Status: Acute Plan 27F w/ PMH reactive airway disease presents shortness of breath and asthma exacerbation 1) asthma exacerbation/acute hypoxic respiratory failure - back on o2, still needs more time - 03/02 still tight, PEF 300 --> 350 - 03/03 PEF 270 - 03/04 PEF 350 - cont solumedrol and duonebs. on 03/03 added azithromycin -?leukocytosis, downtrending. procal 0. cont to trend, no evidence of infection. blood cx NGTD 2) sinus tachycardia - per history, this is chronic, but never evaluated. she has had adequate fluid resuscitation without improvement. now improving with ongoing treatment of asthma, cardiology consulted, recommended monitoring. consider inappropriate sinus tachy syndrome if persists after asthma treatment is compelte - ABG w/o hypercapnia. d dimer negative. trop negative. no fever or anemia - EKG inferolateral T wave abnormalities. 2D echo unremarkable. 3) marijuana abuse - counseled FEN: saline lock IV, regular diet GI prophylaxis: not indicated DVT prophylaxis: lovenox Lines: pIV Code Status: Full Code Dispo: stable. More than 25 minutes spent on chart review, patient interaction and assessment and plan. Subjective Date/time seen: 03/04/23 09:24 Interval history: NAOE. pt reports cough with clear sputum, sob at times, denies fever or chest pain. Review of Systems Review of Systems: All systems reviewed & are unremarkable except as noted in HPI and below Exam Const: General: comfortable and no acute distress Other: actively coughing. Eyes: Pupils: Equal, round and reactive pupils present Resp: Auscultation: wheezes (scant) and diminished lung sounds (slightly more aerated than day prior) Cardio: Rate: tachycardic Rhythm: regular rhythm Heart sounds: no gallops, no murmurs and no rubs GI: Inspection: non-distended GI Palp: Yes Soft to palpation and No Tenderness to palpation present (GI) Extrem: General: no edema Objective Data Vital Signs Vital Signs: Vital Signs - 24 hr 03/03/23 10:00 03/03/23 11:58 03/03/23 12:00 Temperature 98.1 F Pulse Rate 99 104 H 109 H Respiratory Rate 18 Blood Pressure 134/77 Pulse Oximetry 94 Oxygen Delivery Oxygen Flow Rate Fraction of Inspired Oxygen 03/03/23 12:00 03/03/23 14:00 03/03/23 14:18 Temperature Pulse Rate 93 95 Respiratory Rate 20 Blood Pressure Pulse Oximetry 91 Oxygen Delivery Nasal Cannula Oxygen Flow Rate 2 Fraction of Inspired Oxygen 03/03/23 14:29 03/03/23 16:00 03/03/23 16:00 Temperature 98.8 F Pulse Rate 102 H 115 H Respiratory Rate 20 18 Blood Pressure 144/81 H Pulse Oximetry 93 92 Oxygen Delivery Nasal Cannula Oxygen Flow Rate 2 Fraction of Inspired Oxygen 03/03/23 16:00 03/03/23 18:00 03/03/23 20:27 Temperature 97.5 F L Pulse Rate 122 H 110 H 113 H Respiratory Rate 18 Blood Pressure 131/72 Pulse Oximetry 90 Oxygen Delivery Oxygen Flow Rate Fraction of Inspired Oxygen 03/03/23 20:43 03/03/23 20:44 03/03/23 23:41 Temperature 97.5 F L Pulse Rate 89 97 Respiratory Rate 20 18 Blood Pressure 124/68 Pulse Oximetry 92 93 Oxygen Delivery Nasal Cannula Oxygen Flow Rate 2 Fraction of Inspired Oxygen 28 03/03/23 20:00 03/03/23 21:00 03/03/23 20:00 Temperature Pulse Rate 113 H 103 H 117 H Respiratory Rate 18 18 Blood Pressure Pulse Oximetry 90 88 L Oxygen Delivery Nasal Cannula Nasal Cannula Oxygen Flow Rate 2 2 Fraction of Inspired Oxygen 03/03/23 22:00 03/04/23 00:00 03/04/23 00:00 Temperature Pulse Rate 103 H 97 103 H Respiratory Rate 18 Blood Pressure Pulse Oximetry 93 Oxygen Delivery Nasal Cannula Oxygen Flow Rate 3 Fraction of Inspired Oxygen 03/03/23 20:57 03/04/23 02:47 03/04/23 02:00 Temperature
[2023-03-04] MEDS: METOPROLOL TARTRATE INJ 5 MG/5 ML VIAL 2.5 MG IV PUSH (17:20)
[2023-03-05] VITALS (24 sets, daily range): BP systolic 125–143; BP diastolic 73–88; PULSE 76–113; RESP 16–94; TEMP 36.2–36.8; O2SAT 91–97
--- NOTE | 2023-03-05 | ECHO_ITS ---
Patient Info Name: Wilma Thakkar Age: 27 years : 1995 Gender: Female Ht: 62 in Wt: 179 lbs BSA: 1.92 m2 HR: 82 bpm BP: 142 / 81 mmHg Heart Rhythm: Sinus Rhythm Technical Quality: Fair Exam Date: 03/05/2023 1:09 PM Exam Location: Echo Lab Patient Status: Inpatient Admit Date: 03/02/2023 Staff Ordering Physician: Yessica Dukes MD Gas Load Dispatcher: Jeanine Cordero RDCS Attending Provider: Melodie Benz MD Referring Physician: Roseline DAILY; Exam Type: CA echo limited w bubble study Study Info Indications - hypoxemia Limited two-dimensional transthoracic echocardiogram is performed with contrast. Contrast/Agitated Saline Contrast/Ag. Saline: Agitated Saline Amount: 30.00 ml Existing IV Access: Yes IV Access Condition: patent with no signs of infiltration Summary 1. This was a limited study for bubble study. 2. Intact interatrial septum visualized by agitated saline imaging. Negative bubble study. Atrial Septum Intact interatrial septum visualized by agitated saline imaging. Negative bubble study. Report Signatures
[2023-03-05] MEDS: IPRATROPIUM BR 0.02% INH SOLN 0.5 MG/2.5 ML VIAL INHALATION ×4 (02:46→20:27)
[2023-03-05] MEDS: LEVALBUTEROL NEB 1.25 MG/3 ML INHALATION ×4 (02:46→20:27)
[2023-03-05] MEDS: methylPREDNISolone SOD SUCC 125 MG VIAL 60 MG IV PUSH ×4 (05:07→23:45)
[2023-03-05 05:17] LABS: Basophils Absolute Auto 0.1 K/mm3 (0.0-0.1); Basophils Percent Auto 0.3 % (0.2-1.2); Hematocrit 45.5 % (37.0-47.0); Hemoglobin 14.5 g/dL (12.0-15.0); Immature Granulocyte Absolute 0.37 K/mm3 (0.00-0.031); Immature Granulocyte Percent A 2.4 % (0-0.5); Lymphocytes Absolute Auto 1.32 K/mm3 (0.9-3.2); Lymphocytes Percent Auto 8.7 % (18.3-44.2); Mean Corpuscular HGB Conc 31.9 g/dl (32-36); Mean Corpuscular Hemoglobin 26.6 pg (26-34); Mean Corpuscular Volume 83.3 fl (80-100); Monocytes Absolute Auto 0.9 K/mm3 (0.1-0.6); Monocytes Percent Auto 6.2 % (2.6-8.5); Neutrophils Absolute Auto 12.4 K/mm3 (1.3-6.7); Neutrophils Percent Auto 82.4 % (45.5-73.1); Platelet Count Result 328 k/mm3 (150-375); Red Blood Count 5.46 M/mm3 (4.2-5.4); Red Cell Distribution Width 12.9 % (11.5-14.5); White Blood Count 15.1 K/mm3 (4.5-10.0)
[2023-03-05 05:27] LABS: Anion Gap 12 mmol/L (8-16); Blood Urea Nitrogen 17 mg/dL (7-17); Calcium 9.3 mg/dL (8.4-10.2); Carbon Dioxide 25 mmol/L (22-30); Chloride 100 mmol/L (98-107); Estimated CRCL calculation 121 ml/min; Estimated Glomerular Filt Rate > 60; Glucose 139 mg/dL (65-110); Potassium 3.9 mmol/L (3.4-5.0); Sodium 137 mmol/L (137-145)
--- NOTE | 2023-03-05 07:52 | PM.IMPN ---
Progress Note: A&P Assessment and Plan (1) Acute hypoxemic respiratory failure: Code(s): J96.01 - Acute respiratory failure with hypoxia Status: Acute (2) Asthma: Qualifiers: Asthma complication type: with acute exacerbation Asthma persistence: unspecified Asthma severity: unspecified severity Qualified Code(s): J45.901 - Unspecified asthma with (acute) exacerbation Code(s): J45.909 - Unspecified asthma, uncomplicated Status: Acute (3) Tachycardia: Code(s): R00.0 - Tachycardia, unspecified Status: Acute Plan 27F w/ PMH reactive airway disease presents shortness of breath and asthma exacerbation 1) asthma exacerbation/acute hypoxic respiratory failure - up to 4L NC now. PEF since admission 300-350 but on 03/04 it is 270[address] CT chest for further visualization - cont azithromycin, solumedrol, and duonebs, o2 and wean as tolerating. giving mag IVPB 2G x1 - leukocytosis stable at 15.1, pro francisco essentialy zero. - CT will help visualize for clot, pna, etc. could simply be refractory asthma exacerbation, at which point we'd consult pulm for more assistance. ordered viral resp pathogen panel as well. 2) sinus tachycardia - per history, this is chronic, but never evaluated. she has had adequate fluid resuscitation without improvement. now improving with ongoing treatment of asthma, cardiology consulted, recommended monitoring. consider inappropriate sinus tachy syndrome if persists after asthma treatment is complete - ABG w/o hypercapnia. d dimer negative. trop negative. no fever or anemia - EKG inferolateral T wave abnormalities. 2D echo unremarkable. 3) marijuana abuse - counseled FEN: saline lock IV, regular diet GI prophylaxis: not indicated DVT prophylaxis: lovenox Lines: pIV Code Status: Full Code Dispo: stable. More than 35 minutes spent on chart review, patient interaction and assessment and plan. Subjective Date/time seen: 03/05/23 07:52 Interval history: NAOE. pt still feels short of breath, she is actively coughing as I enter the room Review of Systems Review of Systems: All systems reviewed & are unremarkable except as noted in HPI and below Exam Const: General: comfortable Other: intermittent dry cough Eyes: Pupils: Equal, round and reactive pupils present Neck: Neck: supple Resp: Effort & Inspection: normal respiratory effort Auscultation: diminished lung sounds Other: scant exp wheeze. miild rhonchi right middle lobe Cardio: Rate: tachycardic Rhythm: regular rhythm Heart sounds: no gallops, no murmurs and no rubs GI: Inspection: non-distended GI Palp: Yes Soft to palpation and No Tenderness to palpation present (GI) Auscultation: normal bowel sounds Extrem: General: no edema Objective Data Vital Signs Vital Signs: Vital Signs - 24 hr 03/04/23 07:57 03/04/23 08:09 03/04/23 08:09 Temperature 98.1 F Pulse Rate 95 76 Respiratory Rate 18 20 Blood Pressure 132/76 Pulse Oximetry 90 96 Oxygen Delivery Nasal Cannula Oxygen Flow Rate 3 Fraction of Inspired Oxygen 03/04/23 08:00 03/04/23 08:00 03/04/23 10:00 Temperature Pulse Rate 102 H 105 H Respiratory Rate Blood Pressure Pulse Oximetry 96 Oxygen Delivery Nasal Cannula Oxygen Flow Rate 3 Fraction of Inspired Oxygen 03/04/23 11:58 03/04/23 12:00 03/04/23 12:00 Temperature 98.0 F Pulse Rate 99 108 H Respiratory Rate 14 Blood Pressure 132/76 Pulse Oximetry 92 96 Oxygen Delivery Nasal Cannula Oxygen Flow Rate 3 Fraction of Inspired Oxygen 03/04/23 14:10 03/04/23 14:22 03/04/23 14:00 Temperature Pulse Rate 82 87 108 H Respiratory Rate 20 20 Blood Pressure Pulse Oximetry Oxygen Delivery Oxygen Flow Rate Fraction of Inspired Oxygen 03/04/23 15:00 03/04/23 15:53 03/04/23 17:20 Temperature 98.2 F Pulse Rate 108 H 108 H Respiratory Rate 102 H 16 Blood Pressure 135/83
[2023-03-05 08:27] LABS: Magnesium 2.3 mg/dL (1.6-2.3)
[2023-03-05] MEDS: AZITHROMYCIN 500 MG/NS 250 ML 500 MG/250 ML BAG 250 MG IVPB (08:59)
[2023-03-05] MEDS: ENOXAPARIN 40 MG/0.4 ML SYRINGE SUB-Q (09:00)
[2023-03-05] MEDS: MAGNESIUM SULF 2 GM/WATER 50ML 2 GM/50 ML BAG IVPB (09:03)
--- NOTE | 2023-03-05 10:42 | PM.CNPUL ---
Assessment and Plan Assessment and plan (1) Acute hypoxemic respiratory failure: Code(s): J96.01 - Acute respiratory failure with hypoxia Status: Acute Assessment and Plan: She has required supplemental oxygen up to 4 L a minute. She does not have infiltrates, CTA was negative for PE. This oxygen can be weaned as tolerated. Had echo recently, will ask for bubble to be performed to exclude intracardiac shunt. (2) Asthma: Qualifiers: Asthma complication type: unspecified Asthma persistence: unspecified Asthma severity: unspecified severity Qualified Code(s): J45.909 - Unspecified asthma, uncomplicated Code(s): J45.909 - Unspecified asthma, uncomplicated Status: Acute Assessment and Plan: This diagnosis was made over a year ago with an ER visit, has been using albuterol, no other medication. She does not have a primary care provider. She will need additional follow-up after discharge. Her peak flows are being monitored, current medications. She likely has allergic asthma. She is currently on steroids, after improvement from this hospitalization we will obtain additional labs for, IgE, allergen panel, Aspergillus titers. In the office a exhaled nitric oxide will be helpful to evaluate for airway inflammation. Plan I ordered an echo with bubble study to evaluate for other causes for hypoxemia. She will need PFTs after discharge when she is more stable. She may benefit from having a nebulizer in her home for exacerbations Will need testing for IgE, allergen panel, aspergillus when hse is not on steroids. History of Present Illness History of Present Illness Consult date: 03/05/23 Chief complaint: asthma exacerbation,tachycardia Narrative: NEW: Wilma Thakkar is a 37-year-old woman with a history of asthma, diagnosis was made a year ago when she was treated in ER with bronchitis; over the last year she has been stable, used a canister of albuterol since then. Once she had an episode of worsening [place], went to get albuterol treatment and meds from a clinic. She has no had significant problems during the last year. At home, she had wheezing and shortness of breath with nonproductive cough. She has been using her albuterol inhaler 2 to 3 times a day, ran out on the other night. She took a hot shower to expose herself to steam. When she could not get any relief a Sebastian brought her to the emergency department. Her workup showed elevated white blood cell count 15.1 with normal differential, hypoxemia, pH 7.469, pCO2 32.8, PO2 54.1 saturation 90.3% on room air A-a gradient 56.4. 03/05/23 chest CTA that showed no pulmonary embolus and no infiltrate, only mild atelectasis. She lives in a house, there was scant amounts of mold seen in the stairwell in in the basement but she does not have excessive water. She is allergic to cats and has 4 cats, has itchy eyes and more nasal symptoms with prolonged exposure. smokes marijuana eosinophils a year ago 9% otherwise normal Triggers: winter, not cold air; pollen, mainly dust. 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 She is usually tachycardic, had an echo March 02 for evaluation. This showed EF greater than 70% normal left ventricular size and function Family history: Her mother does not have breathing problems. Her father in his 50s from a drug overdose but at times used inhalers. Her grandmother on her father side uses oxygen and has emphysema. current hospital medications Enoxaparin Sodium ?40 mg ?03/03/23 09:00 ?03/04/23 09:13 ? Enoxaparin 40 Mg/0.4 Ml Syringe ?SUB-Q ? ?40 mg ? ?DAILY PILAR ? ?Administration Azithromycin ?500 mg in 250 mls @ 250 mls/hr ?03/04/23 09:00 ?03/04/23 10:
[2023-03-06] VITALS (23 sets, daily range): BP systolic 120–135; BP diastolic 70–90; PULSE 75–128; RESP 16–20; TEMP 36.1–36.5; O2SAT 91–96
[2023-03-06] MEDS: IPRATROPIUM BR 0.02% INH SOLN 0.5 MG/2.5 ML VIAL INHALATION ×4 (02:29→19:51)
[2023-03-06] MEDS: LEVALBUTEROL NEB 1.25 MG/3 ML INHALATION ×4 (02:29→19:51)
[2023-03-06 05:21] LABS: Basophils Absolute Auto 0.1 K/mm3 (0.0-0.1); Basophils Percent Auto 0.6 % (0.2-1.2); Eosinophils Percent Auto 0.1 % (0-4.4); Hematocrit 43.6 % (37.0-47.0); Hemoglobin 13.8 g/dL (12.0-15.0); Immature Granulocyte Absolute 0.49 K/mm3 (0.00-0.031); Immature Granulocyte Percent A 3.3 % (0-0.5); Lymphocytes Absolute Auto 1.33 K/mm3 (0.9-3.2); Mean Corpuscular HGB Conc 31.7 g/dl (32-36); Mean Corpuscular Hemoglobin 26.4 pg (26-34); Mean Corpuscular Volume 83.5 fl (80-100); Mean Platelet Volume 10.9 fl (7.4-10.4); Monocytes Absolute Auto 0.8 K/mm3 (0.1-0.6); Monocytes Percent Auto 5.4 % (2.6-8.5); Neutrophils Absolute Auto 12.1 K/mm3 (1.3-6.7); Neutrophils Percent Auto 81.6 % (45.5-73.1); Platelet Count Result 312 k/mm3 (150-375); Red Blood Count 5.22 M/mm3 (4.2-5.4); Red Cell Distribution Width 12.9 % (11.5-14.5); White Blood Count 14.8 K/mm3 (4.5-10.0)
[2023-03-06 05:37] LABS: Anion Gap 8 mmol/L (8-16); Blood Urea Nitrogen 13 mg/dL (7-17); Calcium 8.7 mg/dL (8.4-10.2); Carbon Dioxide 27 mmol/L (22-30); Chloride 100 mmol/L (98-107); Estimated CRCL calculation 143 ml/min; Estimated Glomerular Filt Rate > 60; Glucose 136 mg/dL (65-110); Magnesium 2.3 mg/dL (1.6-2.3); Potassium 4.2 mmol/L (3.4-5.0); Sodium 135 mmol/L (137-145)
[2023-03-06] MEDS: methylPREDNISolone SOD SUCC 125 MG VIAL 60 MG IV PUSH ×2 (06:00→14:43)
[2023-03-06 06:10] LABS: Procalcitonin < 0.0 ng/mL
[2023-03-06] MEDS: AZITHROMYCIN 500 MG/NS 250 ML 500 MG/250 ML BAG 250 MG IVPB (10:10)
[2023-03-06] MEDS: ENOXAPARIN 40 MG/0.4 ML SYRINGE SUB-Q (10:10)
--- NOTE | 2023-03-06 14:36 | PM.PNPUL ---
Progress Note: A&P Assessment and Plan (1) Acute hypoxemic respiratory failure: Code(s): J96.01 - Acute respiratory failure with hypoxia Status: Acute Assessment and Plan: She has required supplemental oxygen up to 4 L a minute. She does not have infiltrates, CTA was negative for PE. O2 can be weaned as tolerated. Had echo recently, normal and bubble study 03/05 was normal. She does not have an intracardiac shunt. She is only 27, smokes marijuana, has no been a tobacco smoker. Not cleat why she has O2 deficit. Out patient PFTs. Walk study before discharge. I (2) Asthma: Qualifiers: Asthma complication type: with acute exacerbation Asthma persistence: unspecified Asthma severity: unspecified severity Qualified Code(s): J45.901 - Unspecified asthma with (acute) exacerbation Code(s): J45.909 - Unspecified asthma, uncomplicated Status: Acute Assessment and Plan: This diagnosis was made over a year ago with an ER visit, has been using albuterol, no other medication. She does not have a primary care provider. She will need additional follow-up after discharge. Her peak flows are being monitored, current medications. She likely has allergic asthma. She is currently on steroids, after improvement from this hospitalization we will obtain additional labs for, IgE, allergen panel, Aspergillus titers. In the office a exhaled nitric oxide will be helpful to evaluate for airway inflammation. Peak flows improving; Plan Her bubble study is negative for intracardiac shunt. I am trying to find why she is hypoxemia. Peak flows are much better, will decreased solumedrol from 60 mg Q 6 to 40 mg Q 8 hr. CHange to po steroids in am. Start walking around, see what her saturation does, and if O2 can be weaned. She may need to go home on O2, and can be re-evaluated after discharge. Going home on O2 does not mean that she will stay on it. Home walk study tomorrow She will need PFTs after discharge 6-8 weeks later. She may benefit from having a nebulizer in her home for exacerbations Will need testing for IgE, allergen panel, aspergillus when over this exacerbation, off steroids. Her heart rate still increases easily. While recovering from asthma exacerbation, it will not be clear what the real cause it. Boyfriend has noticed her heart rate high for a long time at home under normal conditions. consider discharge tomorrow Subjective Date/time seen: 03/06/23 14:36 Interval history: Hospital follow-up: 03/06; patient is seen in follow-up for hypoxemia, asthma exacerbation. Since yesterday, she had a limited echo with agitated bubble study, no evidence of bubbles crossing the atrial septum. She does not have a shunt causing hypoxemia. She feels better, wants to get up and walk. Today on 3 liters/minute her saturation is recorded as 91-94%. This is not normal but she is overall improving. Peak flows pre and post nebulized bronchodilator treatments are being recorded. Her peak flows are steadily improving. Based on height 5'1 = 1.54 meters; Predicted optimal peak flow 385 L/min 308-385 L/min = green; 193 to 308 L/min= yellow, below 193 L/min = red . She needs instructions and values to determine if she is in trouble and when to present for help. he needs asthma action plan. 03/06/23 Pre BD Post BD 2:50 200 L/min 250 L/min 9:00 250 L/min 275 L/min 13:30 280 L/min 340 L/min 03/05/23 Wilma Thakkar is a 37-year-old woman with a history of asthma, diagnosis was made a year ago when she was treated in ER with bronchitis; over the last year she has been stable, used a canister of albuterol since then. 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 She has no had significant proble
--- NOTE | 2023-03-06 20:17 | PM.IMPN ---
Progress Note: A&P Assessment and Plan (1) Acute hypoxemic respiratory failure: Code(s): J96.01 - Acute respiratory failure with hypoxia Status: Acute (2) Asthma: Qualifiers: Asthma complication type: with acute exacerbation Asthma persistence: unspecified Asthma severity: unspecified severity Qualified Code(s): J45.901 - Unspecified asthma with (acute) exacerbation Code(s): J45.909 - Unspecified asthma, uncomplicated Status: Acute (3) Tachycardia: Code(s): R00.0 - Tachycardia, unspecified Status: Acute Plan 27F w/ PMH reactive airway disease presents shortness of breath and asthma exacerbation 1) asthma exacerbation/acute hypoxic respiratory failure - patient is clinically improving, down to 3 L oxygen via nasal cannula - Continue weaning off oxygen while keeping O2 sat between 90-94% - cont azithromycin, solumedrol, and duonebs, o2 and wean as tolerating. giving mag IVPB 2G x1 - leukocytosis slowly downtrending - Chest CTA done which ruled out any intra pulmonary infection - Pulmonary to evaluation and recommendations reviewed, appreciated and agreed with - Follow-up closely with pulmonary 2) sinus tachycardia - per history, this is chronic, but never evaluated. she has had adequate fluid resuscitation without improvement. now improving with ongoing treatment of asthma, cardiology consulted, recommended monitoring. consider inappropriate sinus tachy syndrome if persists after asthma treatment is complete - ABG w/o hypercapnia. d dimer negative. trop negative. no fever or anemia - EKG inferolateral T wave abnormalities. 2D echo unremarkable. 3) marijuana abuse - counseled FEN: saline lock IV, regular diet GI prophylaxis: not indicated DVT prophylaxis: lovenox Lines: pIV Code Status: Full Code Dispo: stable. ? Patient seen and examined at bedside during my morning rounds ? Collaborated with patient's nurse at the bedside in detail and addressed all concerns ? Labs, electrolytes, radiology, investigations and test results reviewed ? Consult/Nursing/Ancilliary notes on the chart reviewed and appreciated ? Spoke with patient/family at the bedside and answered all the questions that they had Repeat labs in a.m. Electrolyte replacement as per protocol. Patient will be monitored very closely on the floor. continue to wean of on oxygen. continue to taper steroids. Follow up closely as per Pulmonary. Encourage ambulation. DC planning in the next 24-48 hours if she remains stable and cleared by Pulmonary for discharge. Time Spent With Patient Time with patient: 25 - 35 minutes Subjective Date/time seen: 03/06/23 20:17 Interval history: Patient sitting in bed during my morning rounds. Her breathing has improved. We are weaning her off her Supplementation oxygen therapy. she is tolerating meds well. Review of Systems Review of Systems: shortness for breath and wheezing is slowly improving, no fever rigor chills or chest pain. All systems reviewed & are unremarkable except as noted in HPI and below Exam Narrative: PHYSICAL EXAMINATION: Vital signs: Please see the chart General physical exam: Head/eyes: Atraumatic, EOMI, PERRLA ENT: Moist mucous membranes, nasal passages clear Neck: Supple, full range of motion, trachea midline CVS: S1 + S2, regular rate and rhythm, no murmurs Respiratory: Bilaterally decreaed air entry in both lung sanchez, + bilateral wheezing, symmetric chest expansion Abdomen: Soft, non-tender, bowel sounds +ve, no organomegaly Extremities: No clubbing, no cyanosis, no edema, no calf tenderness Musculoskeletal: Moves all, adequate range of motion, no muscle spasms Skin: Warm, dry, no jaundice, no cyanosis Neurological: Awake, alert, oriented x 3, cranial nerves II-XII intact, no focal neurological deficits Psychiatric: Normal mood, non suicidal Objective Data Vital Signs Vital Signs: Vital Signs - 24 hr 03/05/23 20:30 1
[2023-03-06] MEDS: methylPREDNISolone SOD SUCC 40 MG VIAL IV PUSH (22:03)
[2023-03-07] VITALS (19 sets, daily range): BP systolic 117–132; BP diastolic 68–90; PULSE 63–137; RESP 16–20; TEMP 36–36.5; O2SAT 92–96
[2023-03-07] MEDS: LEVALBUTEROL NEB 1.25 MG/3 ML INHALATION ×3 (01:50→13:15)
[2023-03-07] MEDS: IPRATROPIUM BR 0.02% INH SOLN 0.5 MG/2.5 ML VIAL INHALATION ×3 (01:50→13:15)
[2023-03-07 05:19] LABS: Basophils Absolute Auto 0.1 K/mm3 (0.0-0.1); Basophils Percent Auto 0.7 % (0.2-1.2); Eosinophils Percent Auto 0.1 % (0-4.4); Hematocrit 45.5 % (37.0-47.0); Hemoglobin 14.4 g/dL (12.0-15.0); Immature Granulocyte Percent A 5.1 % (0-0.5); Lymphocytes Percent Auto 9.5 % (18.3-44.2); Mean Corpuscular HGB Conc 31.6 g/dl (32-36); Mean Corpuscular Hemoglobin 26.4 pg (26-34); Mean Corpuscular Volume 83.3 fl (80-100); Mean Platelet Volume 10.6 fl (7.4-10.4); Monocytes Absolute Auto 1.1 K/mm3 (0.1-0.6); Monocytes Percent Auto 6.9 % (2.6-8.5); Neutrophils Absolute Auto 12.2 K/mm3 (1.3-6.7); Neutrophils Percent Auto 77.7 % (45.5-73.1); Platelet Count Result 315 k/mm3 (150-375); Red Blood Count 5.46 M/mm3 (4.2-5.4); Red Cell Distribution Width 12.9 % (11.5-14.5); White Blood Count 15.7 K/mm3 (4.5-10.0)
[2023-03-07 05:31] LABS: Anion Gap 11 mmol/L (8-16); Blood Urea Nitrogen 16 mg/dL (7-17); Calcium 8.9 mg/dL (8.4-10.2); Carbon Dioxide 27 mmol/L (22-30); Chloride 98 mmol/L (98-107); Estimated CRCL calculation 120 ml/min; Estimated Glomerular Filt Rate > 60; Glucose 123 mg/dL (65-110); Potassium 4.3 mmol/L (3.4-5.0); Sodium 136 mmol/L (137-145)
[2023-03-07] MEDS: methylPREDNISolone SOD SUCC 40 MG VIAL IV PUSH (06:00)
[2023-03-07] MEDS: AZITHROMYCIN 500 MG/NS 250 ML 500 MG/250 ML BAG 250 MG IVPB (10:49)
[2023-03-07] MEDS: ENOXAPARIN 40 MG/0.4 ML SYRINGE SUB-Q (10:49)
--- NOTE | 2023-03-07 11:11 | PM.PNPUL ---
Progress Note: A&P Assessment and Plan (1) Acute hypoxemic respiratory failure: Code(s): J96.01 - Acute respiratory failure with hypoxia Status: Acute Assessment and Plan: Better, required supplemental oxygen up to 4 L a minute, now 1 L/min. She does not have infiltrates, CTA was negative for PE. Take off O2, home O2 study now. Had echo recently, normal and bubble study 03/05 was normal. She does not have an intracardiac shunt. She is only 27, smokes marijuana, has not been a tobacco smoker. Out patient PFTs. I (2) Asthma: Qualifiers: Asthma complication type: with acute exacerbation Asthma persistence: unspecified Asthma severity: unspecified severity Qualified Code(s): J45.901 - Unspecified asthma with (acute) exacerbation Code(s): J45.909 - Unspecified asthma, uncomplicated Status: Acute Assessment and Plan: This diagnosis was made over a year ago with an ER visit, has been using albuterol, no other medication. She does not have a primary care provider. She will need additional follow-up after discharge. Her peak flows are being monitored. She likely has allergic asthma. She is currently on steroids, after improvement from this hospitalization we will obtain additional labs for, IgE, allergen panel, Aspergillus titers. In the office a exhaled nitric oxide will be helpful to evaluate for airway inflammation. Peak flows improving; Plan Remove IV; Home O2 study today. No smoking. None. Asthma Action Plan given. Green: 310-385 L/min; yellow: 190-310 L/min; Red below: 190 L/min Start oral steroids. Nebulizer for use at home. Albuterol 0.083% TID p.r.n. wheezing or shortness of breath. This will be a new order for the nebulizer. I entered an order for home nebulizer to send to respiratory therapy. She will need prescription to take to her pharmacy. Albuterol 2.5 mg/3 ml Q 6 hr prn SOB/ wheezing. Peak flows monitoring. I gave her PF diary to record symptoms and peak flows. Discussed, and website [email or web address] given for extensive information re: asthma, peak flow monitoring, allergens, weather information, medications. Negative bubble study, negative for intracardiac shunt. f/u in pulmonary office 2-3 weeks. NIOX in office to evaluate airway inflammation. She needs a primary care provider, and HEALTH PHYSICIST; has retained IUD that is old. PFTs after discharge 6-8 weeks later. Will need testing for IgE, allergen panel, aspergillus when over this exacerbation, off steroids. Her heart rate is much better. It is mostly below 100. Subjective Date/time seen: 03/07/23 11:11 Interval history: Hospital follow-up: 03/07 : Feels much better. Down to 1 L/min O2. Sat 94%. I added more peak flows to the chart below; improving. Will get home O2 study, let her walk on room air; stop solumedrol, change to prednisone. She can go home on Fluticasone - salmeterol /21 TWO puffs twice a day, rinse and spit, rescue inhaler, and prednisone taper, follow up in our office in 2 weeks. Nebulizer with albuterol 0.083% TID prn shortness of breath or wheezing. Heart rate gets into 120s however she is mostly below 100. Improved. 03/06; patient is seen in follow-up for hypoxemia, asthma exacerbation. Since yesterday, she had a limited echo with agitated bubble study, no evidence of bubbles crossing the atrial septum. She does not have a shunt causing hypoxemia. She feels better, wants to get up and walk. Today on 3 liters/minute her saturation is recorded as 91-94%. This is not normal but she is overall improving. Peak flows pre and post nebulized bronchodilator treatments are being recorded. Her peak flows are steadily improving. Based on height 5'1 = 1.54 meters; Predicted optimal peak flow 385 -390 L/min 308-385 L/min = green; 193 to 308 L/min= yellow, below 19
--- NOTE | 2023-03-07 13:52 | HOMEO2EVAL ---
Evaluation was performed at [facility] Home Oxygen Evaluation RC: Home Oxygen (O2) Evaluation Start: 03/07/23 11:35 Freq: ONCE Status: Active Protocol: RPE Activity Type Activity Date Activity User E-sign Co-sign Detail Recorded Client Recorded Date Recorded By Document 03/07/23 13:30 [facility] [id number] 03/07/23 13:51 [facility] Document 03/07/23 13:40 [facility] [id number] 03/07/23 13:51 [facility] Document 03/07/23 13:45 [facility] [id number] 03/07/23 13:51 [facility] 03/07/23 03/07/23 03/07/23 13:30 13:40 13:45 Home O2 Evaluation [Oxygen] -Test Phase Resting Exercise Resting -Oxygen Delivery Room Air Room Air Room Air [Pulse Oximetry] -Pulse Oximetry (90-100 %) 92 92 93 [Pulse Rate] -Pulse Rate (60-100 beats/min) 116 H 135 H 115 H [Evaluation] -Activity Tolerance Good [Charges] -Treatment Charges O2 Evaluation - Inpatient
--- NOTE | 2023-03-07 13:52 | PCRCNOTE ---
HOME O2 EVAL COMPLETE. PATIENT DOES NOT REQUIRE HOME O2 AT THIS TIME. HOME NEBULIZER SET UP WITH [facility]. [phone]. RN NOTIFIED.
--- NOTE | 2023-03-07 15:39 | PM.DS ---
DS: Admitting Diagnosis Discharge Date 03/07/2023 Admitting Diagnosis Acute hypoxemic respiratory failure Dehydration Asthma Tachycardia DS: Discharge Diagnosis Discharge Diagnosis (1) Acute hypoxemic respiratory failure: Code(s): J96.01 - Acute respiratory failure with hypoxia Status: Acute Assessment and Plan: Resolved (2) Dehydration: Code(s): E86.0 - Dehydration Status: Acute Assessment and Plan: Resolved (3) Asthma: Qualifiers: Asthma complication type: with acute exacerbation Asthma persistence: unspecified Asthma severity: unspecified severity Qualified Code(s): J45.901 - Unspecified asthma with (acute) exacerbation Code(s): J45.909 - Unspecified asthma, uncomplicated Status: Acute (4) Tachycardia: Code(s): R00.0 - Tachycardia, unspecified Status: Acute Assessment and Plan: Resolved (5) Asthma: Qualifiers: Asthma complication type: unspecified Asthma persistence: unspecified Asthma severity: unspecified severity Qualified Code(s): J45.909 - Unspecified asthma, uncomplicated Code(s): J45.909 - Unspecified asthma, uncomplicated Status: Acute DS: Summary Hospital Course Reason for hospitalization: Acute hypoxemic respiratory failure Dehydration Asthma Tachycardia Hospital Course: Patient continued to require O2 at 4 L per nasal cannula throughout most of the visit but has been able to be weaned to and tolerated well. Home oxygen study shows patient does not require home oxygen. Patient completed a course of azithromycin. CTA chest non acute. Echocardiogram is unremarkable. Pulmonology and Cardiology both consulted. Patient she is back at her baseline. We will plan to discharge patient home with a nebulizer machine and albuterol p.r.n. to follow-up with both pulmonology and Cardiology in outpatient Status at Discharge Functional status at discharge: independent ambulation Overall status at discharge: patient is back to baseline Time Spent with Patient Time attestation: Total time spent providing and/or coordinating discharge services: Less than 30 minutes Time spent: Less than 30 minutes Exam Const: General: comfortable and no acute distress HENMT: Face/Nose/Sinus: Normal nares present Mouth: Yes moist mucous membranes Eyes: General: appearance normal, both eyes and all related structures Sclera: sclerae normal Pupils: Equal, round and reactive pupils present EOM: EOMs intact bilaterally Neck: Neck: supple and no JVD Resp: Effort & Inspection: normal respiratory effort Auscultation: clear to auscultation bilaterally Other: Patient appears in respiratory distress. Able to speak in complete sentences difficulty. No use of accessory muscles appreciated. Lung sounds are clear and equal bilaterally. Respirations nonlabored and regular. Cardio: Rate: regular rate Rhythm: regular rhythm Other: S1-S2 present and without rub,, gallop GI: GI Palp: Yes Soft to palpation Auscultation: normal bowel sounds Skin: General skin exam: normal color and no rashes or lesions noted Wounds: no wounds Neuro: Motor exam (neuro): 5/5 motor strength present throughout Sensory Exam: normal sensation Extrem: General: normal to inspection Psych: Mental Status: mental status grossly normal Affect: normal affect Other: Patient is alert and oriented x4 and appears in no acute distress. Pleasant affect noted. DS: Data Data Completed and Pending Labs on day of discharge: Labs from last 24 hours 03/07/23 05:08 WBC 15.7 H RBC 5.46 H Hgb 14.4 Hct 45.5 MCV 83.3 MCH 26.4 MCHC 31.6 L RDW 12.9 Plt Count 315 MPV 10.6 H Immature Gran % (Auto) 5.1 H Neut % (Auto) 77.7 H Lymph % (Auto) 9.5 L [place] % (Auto) 6.9 Eos % (Auto) 0.1 Baso % (Auto) 0.7 Lymph # (Auto) 1.50 [place] # (Auto) 1.1 H Eos # (Auto) 0.0 Baso # (Auto) 0.1 Abs Immat Gran (auto) 0.80 H
== END 2023-03-07 16:25 | disposition home or self-care (01) | DRG 133 ==
LOC: ANHED 12:01 → ANHIMU 14:05
PROVIDERS: Family Medicine; Admitting Provider General Practice; Emergency Provider Student in an Organized Health Care Education/Training Program; Visit Provider Nurse Practitioner Family
DX: J96.01 Acute respiratory failure with hypoxia (principal); J45.901 Unspecified asthma with (acute) exacerbation; E86.0 Dehydration; R00.0 Tachycardia, unspecified; F12.90 Cannabis use, unspecified, uncomplicated; Z20.822 Contact with and (suspected) exposure to COVID-19
CPT/HCPCS: 36415; 36600; 71045; 71275; 80048; 80053; 81025; 82805; 82948; 83605; 83735; 83880; 84145; 84484; 85025; 85380; 87040; 87070; 87205; 87637; 93005; 93306; 93308; 94618; 94640; 96361; 96365; 96366; 96372; 96375; 99285; G0378; J0456; J1100; J1650; J2920; J2930; J3475; J7030; Q9967

== ENCOUNTER 2023-12-14 03:16 | Emergency (ER) | payer BC, SELFPAY ==
--- NOTE | ~2023-12-14 | XR_ITS ---
Portable chest x-ray Comparison: 03/01/2023 Clinical History: Shortness of breath Findings: Lungs are clear, without focal consolidation or pleural effusion. Cardiomediastinal silho uette is stable. Bones and soft tissues are unremarkable. Impression: Normal chest. Reviewed, dictated and finalized at location . Impression: Normal chest.
[2023-12-14 03:24] VITALS: BP 150/81; PULSE 69; RESP 20; TEMP 36.7; O2SAT 98
[2023-12-14 03:59] VITALS: O2SAT 99
[2023-12-14 04:11] LABS: Influenza A QL RT-PCR Negative (Negative); Influenza B QL RT-PCR Negative (Negative); SARS-CoV-2 RNA PCR Negative (Negative)
--- NOTE | 2023-12-14 04:13 | ED.GENADULT ---
HPI - General Adult General Chief complaint: Upper Respiratory Infection Stated complaint: sob, cough Time Seen by Provider: 12/14/23 03:19 History of Present Illness HPI narrative: Patient is a 28-year-old female who presents to the emergency department this morning complaining of a cough and URI symptoms. Patient states that she started to develop the symptoms approximately 2 weeks ago and now has started to develop some shortness of breath as well. Patient admits that she does have a history of asthma and has run out of her albuterol nebulizer solution. Denies any chest pain, states that she has been checking her temperature at home the highest that has gone was 99. Denies any sick contacts at home. Denies any additional symptoms or concerns at this time. Related Data Home Medications Medication Instructions Recorded Confirmed diphenhydramine HCl 50 mg capsule 50 mg PO HS PRN sleep 03/01/23 03/01/23 Allergies Allergy/AdvReac Type Severity Reaction Status Date / Time No Known Allergies Allergy Mild Verified 12/14/23 03:26 Review of Systems Review of Systems: All systems are reviewed and are negative unless stated otherwise in the HPI. [facility] Past Medical History Medical History Asthma Family History Family History Grandparent Acute myocardial infarction Asthma Chronic obstructive pulmonary disease Cerebrovascular accident Diabetes mellitus Hypertension Father Diabetes mellitus Hypertension Social History Social History Smoking status: Never smoker Second hand tobacco smoke exposure: No Alcohol intake: current Drinks per week: 2 Substance use: current Substance use type: marijuana Last use: 02/28/23 Lack of Transportation: No Lack of Food: Often True Current Housing: I Do Not Have Housing Concerned About Future Housing: No Difficulty Paying Gas/Electric Bills: YES Difficulty Paying for Meds: YES Currently Unemployed: YES Education: High School Diploma/GED Difficulty w/ Childcare or Family Care: No Spiritual care concerns: No Exam Narrative: General: Alert, awake, afebrile, in no acute distress. HEENT: PERRL, no rhinorrhea, no post nasal drip, oropharynx clear. Cardiovascular: Regular rate and rhythm, no murmurs, rubs or gallops, no peripheral edema. Respiratory: Bilateral expiratory wheezing, no tachypnea, no rhonchi, no rubs, no respiratory distress. Abdomen: Soft, nontender, nondistended, no rebound, no guarding, no peritoneal signs. Musculoskeletal: No joint swelling or deformity, normal muscle tone. Skin: No rashes or petechia, no signs of infection. Neurological: Alert and oriented to person, place, and time. Follows all commands. No focal deficits, speech is clear and fluent. Course Vital Signs Vital signs: Vital Signs Temperature 98.0 F 12/14/23 03:24 Pulse Rate 69 12/14/23 03:24 Respiratory Rate 20 12/14/23 03:24 Blood Pressure 150/81 H 12/14/23 03:24 Pulse Oximetry 98 12/14/23 03:24 Oxygen Delivery Room Air 12/14/23 03:24 Temperature 98.0 F 12/14/23 03:24 Pulse Rate 72 12/14/23 05:05 Respiratory Rate 18 12/14/23 05:05 Blood Pressure 121/89 12/14/23 05:05 Pulse Oximetry 98 12/14/23 05:05 Oxygen Delivery Room Air 12/14/23 03:59 Medical Decision Making MDM Narrative Medical decision making narrative: The patient was evaluated by myself in the emergency department. History is obtained from patient who is an independent historian and physical exam was performed. External medical records were reviewed at this time. Patient was administered 125 mg of IM Solu-Medrol and DuoNeb breathing treatment. Imaging studies obtained included CXR which was independently interpreted by me revealing no acute cardiopulmonary process
[2023-12-14 04:21] VITALS: PULSE 78; RESP 18
[2023-12-14] MEDS: IPRATROPIUM 0.5 MG/ALBUTEROL SULFATE 2.5 MG AMPUL.NEB 3 ML INHALATION (04:21)
[2023-12-14] MEDS: methylPREDNISolone SOD SUCC 125 MG VIAL IM (04:26)
[2023-12-14 04:29] VITALS: PULSE 87; RESP 20
[2023-12-14 05:05] VITALS: BP 121/89; PULSE 72; RESP 18; O2SAT 98
[2023-12-14 05:27] VITALS: BP 114/81; PULSE 84; RESP 14; O2SAT 96
== END 2023-12-14 05:30 | disposition home or self-care (01) ==
PROVIDERS: Emergency Provider Emergency Medicine
DX: J06.9 Acute upper respiratory infection, unspecified (principal); J45.901 Unspecified asthma with (acute) exacerbation
CPT/HCPCS: 71045; 87636; 94640; 96372; 99283; J2919

== ENCOUNTER 2024-05-22 02:52 | Emergency (ER) | payer BC, SELFPAY ==
--- NOTE | ~2024-05-22 | XR_ITS ---
EXAMINATION: XR chest 2V DATE: 05/22/2024 08:31 INDICATION: Shortness of breath. Cough. TECHNIQUE: Frontal and lateral views of the chest were obtained. COMPARISON: Chest single view 12/14/2023, chest CT 03/05/2023 FINDINGS: There is no pneumonia, pleural effusion, or pneumothorax. The heart size is normal. IMPRESSION: 1. No acute cardiopulmonary disease. Reviewed, dictated and finalized at location A. [employer]OP[employer]
--- OUTSIDE RECORDS SUMMARY | 2024-05-22 02:54 | XMS_ITS | Clinical Summary ---
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
[2024-05-22 02:55] VITALS: BP 120/90; PULSE 98; RESP 20; TEMP 37.1; O2SAT 96
--- NOTE | 2024-05-22 02:58 | ECG_ITS ---
Test Date: 2024-05-22 03:02:18 Measurements Intervals [place] Rate: 99 P: 47 [place]: 126 QRS: 28 QRSD: 89 T: 37 QT: 338 QTc: 434 Interpretive Statements SINUS RHYTHM POSSIBLE LEFT ATRIAL ENLARGEMENT POSSIBLE RIGHT VENTRICULAR CONDUCTION DELAY BORDERLINE T WAVE ABNORMALITY- INFERIOR LEADS BASELINE ARTIFACT- I, III, AVR, AVL, AVF BORDERLINE ECG No previous ECG available for comparison Electronically Signed On 05-22-2024 06:18:06 STRIPPING SHOVEL OPERATOR by Luis Alberto London D.O.
[2024-05-22 06:45] VITALS: BP 119/91; PULSE 98; RESP 13; O2SAT 96; O2SAT 97
[2024-05-22 07:29] LABS: Influenza A QL RT-PCR Positive (Negative); Influenza B QL RT-PCR Negative (Negative); RSV RNA, RT-PCR Negative (Negative); SARS-CoV-2 RNA PCR Negative (Negative)
--- NOTE | 2024-05-22 08:01 | ED_ITS ---
HPI - General Adult General Chief complaint: Shortness of Breath/Dyspnea Stated complaint: SOB, cough Time Seen by Provider: 05/22/24 07:53 History of Present Illness HPI narrative: Patient is a 8-year-old female who presents emergency department with chief complaint of shortness of breath fever and lightheadedness. Patient reports he was exposed influenza and COVID patient states that she has been diagnosed with asthma previously uses Singulair and albuterol and has had other partners as well. The patient states that she has been coughing had a productive cough with this reports that the symptoms are not improved by anything. Related Data Home Medications ?Medication ?Instructions ?Recorded ?Confirmed ?Last Taken ?Type diphenhydramine HCl 50 mg capsule 50 mg PO HS PRN sleep 03/01/23 03/01/23 02/28/23 History Allergies Allergy/AdvReac Type Severity Reaction Status Date / Time No Known Allergies Allergy Mild Verified 12/14/23 03:26 Review of Systems Review of Systems: A 10 system review of systems was completed on the patient and is negative except for what is stated in the HPI. Nursing and ancillary documentation was reviewed. [facility] Past Medical History Medical History Asthma Family History Family History Grandparent Acute myocardial infarction Asthma Chronic obstructive pulmonary disease Cerebrovascular accident Diabetes mellitus Hypertension Father Diabetes mellitus Hypertension Social History Social History Smoking status: Never smoker Second hand tobacco smoke exposure: No Alcohol intake: current Drinks per week: 2 Substance use: current Substance use type: marijuana Last use: 02/28/23 Lack of Transportation: No Lack of Food: Often True Current Housing: I Do Not Have Housing Concerned About Future Housing: No Difficulty Paying Gas/Electric Bills: YES Difficulty Paying for Meds: YES Currently Unemployed: YES Education: High School Diploma/GED Difficulty w/ Childcare or Family Care: No Spiritual care concerns: No Exam Narrative: GENERAL: Well-appearing, well-nourished, and in no acute distress. HEAD: Normocephalic, atraumatic. EYES: PERRLA and EOMI. ENT: Nares clear, no rhinorrhea or epistaxis. Mucous membranes moist. NECK: Supple. CHEST: Scattered wheezes to auscultation. No respiratory distress. HEART: Regular rate and rhythm. No murmur heard. Normal peripheral pulses. ABDOMEN: Soft, nontender, nondistended, normal active bowel sounds. EXTREMITIES: Normal range of motion. No edema. SKIN: Warm, dry, no rash. NEURO: No focal deficits. Alert and oriented x3. PSYCH: Normal mood and affect. Course Vital Signs Vital signs: Vital Signs Temperature 37.1 C 05/22/24 02:55 Pulse Rate 98 05/22/24 02:55 Respiratory Rate 20 05/22/24 02:55 Blood Pressure 120/90 05/22/24 02:55 Pulse Oximetry 96 05/22/24 02:55 Oxygen Delivery Room Air 05/22/24 02:55 Temperature 37.1 C 05/22/24 02:55 Pulse Rate 98 05/22/24 06:45 Respiratory Rate 13 05/22/24 06:45 Blood Pressure 119/91 H 05/22/24 06:45 Pulse Oximetry 97 05/22/24 06:45 Oxygen Delivery Room Air 05/22/24 06:45 Medical Decision Making [facility] Narrative Medical decision making narrative: Differential diagnosis includes pneumonia, COPD, asthma, bronchitis The patient was influenza positive the patient will be started on Tamiflu The patient was given a dose of steroids in the emergency department be discharged home on Tamiflu and prednisone. Vital Signs Vital Signs: Vital Signs Temperature 37.1 C 05/22/24 02:55 Pulse Rate 98 05/22/24 02:55 Respiratory Rate 20 05/22/24 02:55 Blood Pressure 120/90 05/22/24 02:55 Pulse Oximetry 96 05/22/24 02:55 Oxygen Delivery Room Air 05/22/24 02:55 Temperature 37.1 C 05/22/24 02:55 Pulse Rate 98 05/22/24 06:45 Respiratory Rate 13 05/22/24 06:45 Blood Pressure 119/91 H 05/22/24 06:45 Pulse Oximetry 97 05/22/24 06:45 Oxygen Delivery Room Air 05/22/24 06:45 Lab Data Labs: Lab Results 05/22/24 Range/Units 06:49 Influenza A (RT-PCR) Positive A (Negative) Influenza B (RT-PCR) Negative (Negative) RSV (RT-PCR) Negative (Negative) SARS-CoV-2 RNA (RT-PCR) Negative (Negative) Discharge Plan Discharge Clinical Impression: Influenza, Asthma exacerbation Patient Disposition: Home, Self-Care Condition: Stable Instructions: Antibiotic Form, Influenza (ED), Allergies (ED) Patient Language: Mexican Prescriptions: New albuterol sulfate 90 mcg/actuation HFA aerosol inhaler 2 puff inhalation QID PRN (Reason: shortness of breath or wheezing) Qty: 8.5 0RF prednisone 20 mg tablet 40 mg PO DAILY 5 Days Qty: 10 0RF oseltamivir [Tamiflu] 75 mg capsule 75 mg PO Q12H 5 Days Qty: 10 0RF No Action albuterol sulfate 90 mcg/actuation aerosol powdr breath activated 2 inh inhalation Q4-6H PRN (Reason: shortness of breath or wheezing) Qty: 1 0RF diphenhydramine HCl 50 mg Capsule 50 mg PO HS PRN (Reason: sleep) albuterol sulfate 2.5 mg /3 mL (0.083 %) solution for nebulization 2.5 mg inhalation Q6H MDD 4 PRN (Reason: shortness of breath or wheezing) Qty: 90 0RF Rx Instructions: Inhale 2.5 mg every 6 hrs PRN for wheezing or SOB albuterol sulfate 2.5 mg/0.5 mL solution for nebulization 5 mg inhalation Q6H PRN (Reason: shortness of breath or wheezing) Qty: 30 0RF prednisone 20 mg tablet 20 mg PO DAILY 5 Days Qty: 5 0RF Follow-up/Referrals: Dani Tay MD [Physician] - UNKNOWN,DOCTOR [Primary Care Provider] -
--- OUTSIDE RECORDS SUMMARY | 2024-05-22 08:02 | XMS_ITS | Clinical Summary ---
Author Organization 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
[2024-05-22] MEDS: IPRATROPIUM 0.5 MG/ALBUTEROL SULFATE 2.5 MG AMPUL.NEB 3 ML INHALATION (08:12)
[2024-05-22 08:13] VITALS: PULSE 86; RESP 18
[2024-05-22 08:17] VITALS: PULSE 106; RESP 25
[2024-05-22] MEDS: methylPREDNISolone SOD SUCC 125 MG VIAL IM (08:19)
[2024-05-22 08:53] VITALS: BP 134/84; PULSE 110; RESP 18; O2SAT 96
== END 2024-05-22 08:53 | disposition home or self-care (01) ==
PROVIDERS: Student in an Organized Health Care Education/Training Program; Emergency Provider Emergency Medicine
DX: J11.1 Influenza due to unidentified influenza virus with other respiratory manifestations (principal); J45.901 Unspecified asthma with (acute) exacerbation; Z20.822 Contact with and (suspected) exposure to COVID-19
CPT/HCPCS: 71046; 87637; 93005; 94640; 96372; 99284; J2919